=== PATIENT | male | born 1955 | race Hispanic/Latino ===

== ENCOUNTER 2017-06-28 16:53 | Inpatient (IN) | payer SELFPAY ==
[2017-06-28 17:52] LABS: BASO % 0.4 % (0.0-2.0); EOS % 0.1 % (0.0-4.0); HEMOGLOBIN 13.1 g/dL (12.0-18.0); LYMPH # 1.6 K/uL (1.0-4.3); LYMPH % 16.7 % (20.0-40.0); MEAN CELL VOLUME 89.4 fL (80.0-94.0); MEAN CORPUSCULAR HEMOGLOBIN 29.6 pg (27.0-31.0); MEAN CORPUSCULAR HGB CONC 33.1 g/dL (33.0-37.0); MEAN PLATELET VOLUME 10.8 fL (7.2-11.7); MONO # 0.7 K/uL (0.0-0.8); MONO % 7.4 % (0.0-10.0); NEUT # 7.3 K/uL (1.8-7.0); NEUT % 75.4 % (50.0-75.0); NRBC % 0.2 % (0.0-2.0); RBC 4.42 Mil/uL (4.40-5.90); RED CELL DISTRIBUTION WIDTH 14.5 % (11.5-14.5); WHITE BLOOD COUNT 9.7 K/uL (4.8-10.8)
[2017-06-28 18:20] LABS: ALB/GLOB RATIO 1.1 (1.0-2.1); ALBUMIN 3.6 g/dL (3.5-5.0); ALT/SGPT 129 U/L (21-72); AST/SGOT 82 U/L (17-59); BLOOD UREA NITROGEN 31 mg/dL (9-20); CALCIUM 9.4 mg/dl (8.6-10.4); GFR AFRICAN-AMERICAN > 60; GFR NON-AFRICAN AMERICAN 56
[2017-06-28 18:24] LABS: B-TYPE NATRIURETIC PEPTIDE 21700 pg/mL (0-900)
[2017-06-28] MEDS ORDERED: Iodixanol 320 MG/ML 100 ML BOTTLE IV ONE (19:21)
[2017-06-28] MEDS ORDERED: Azithromycin 500 MG in Sodium Chloride 0.9% 250 ML IVPB STA (21:16)
[2017-06-28] MEDS ORDERED: Heparin25000 units/250ml 1/2NS 25,000 UNITS/250 ML BAG IV ONE ×3 (21:17→22:30)
[2017-06-28 21:33] LABS: INR 1.3; PROTHROMBIN TIME 14.4 SECONDS (9.7-12.2)
--- NOTE | 2017-06-28 21:54 | C.PDOC ---
History Of Present Illness 61yo male, with history of hypertension, presents to ED with complaints of shortness of breath which has been increasing over the past 2 weeks. Patient states the shortness of breath is worse with exertion; states 1 month ago, he was able to walk a mile but now is short of breath after walking a block. He denies any chest pain, fever or cough. Patient recently had an outpatient evaluation by his PMD as well. He has no other medical complaints. Time Seen by Provider: 06/28/17 17:22 Chief Complaint (Nursing): Shortness Of Breath History Per: Patient History/Exam Limitations: no limitations Onset/Duration Of Symptoms: Days Current Symptoms Are (Timing): Still Present Exacerbating Factor(s): Exertion Associated Symptoms: denies: Fever, Chills, Chest Pain, Productive Cough Past Medical History Reviewed: Historical Data, Nursing Documentation, Vital Signs Vital Signs: Last Vital Signs Temp 98.5 F 06/28/17 21:30 Pulse 101 H 06/28/17 23:40 Resp 15 06/28/17 23:40 BP 97/70 L 06/28/17 23:40 Pulse Ox 96 06/28/17 23:40 - Medical History PMH: HTN Surgical History: No Surg Hx Family History: States: No Known Family Hx - Social History Hx Tobacco Use: No Hx Alcohol Use: Yes Hx Substance Use: No - Immunization History Hx Tetanus Toxoid Vaccination: No Hx Influenza Vaccination: No Hx Pneumococcal Vaccination: No Review Of Systems Except As Marked, All Systems Reviewed And Found Negative. Constitutional: Negative for: Fever, Chills Cardiovascular: Negative for: Chest Pain Respiratory: Positive for: Shortness of Breath. Negative for: Cough Physical Exam - Physical Exam Appears: Non-toxic, Other (thin/frail appearing) Skin: Normal Color, Warm, Dry Head: Atraumatic, Normacephalic Eye(s): bilateral: Normal Inspection, PERRL, EOMI Oral Mucosa: Moist Neck: Normal ROM, Supple Chest: Symmetrical Cardiovascular: Rhythm Regular Respiratory: Normal Breath Sounds, No Wheezing Gastrointestinal/Abdominal: Normal Exam, Soft, No Tenderness Back: Normal Inspection, No Paraspinal Tenderness Extremity: Normal ROM, No Deformity Neurological/Psych: Oriented x3 ED Course And Treatment - Laboratory Results Result Diagrams: 06/28/17 17:44 06/28/17 17:44 O2 Sat by Pulse Oximetry: 97 (RA) Pulse Ox Interpretation: Normal Critical Care Time - Critical Care Note Total Time (in mins): 120 Documented critical care: time excludes all time spent performing seperately billable procedures. Medical Decision Making Medical Decision Making: Impression: Shortness of breath, r/o PE Plan: -- Labs -- EKG -- CXR -- CT Angio Chest Time: 2046 CT Angio Chest FINDINGS: Pulmonary arteries: Multiple pulmonary clots are present in the proximal vessels on both sides including the main right and left pulmonary artery. Clot burden is large with no signs of ventricular strain. The left ventricle is larger than the right. Both ventricles do appear enlarged likely from preexisting CHF. Aorta: No acute findings. No thoracic aortic aneurysm. Lungs: There is multifocal consolidation in the left lower lobe, consistent with pneumonia. There is minimal right base atelectasis. There is linear atelectasis or scar in the right lung base. Indeterminate nodule at the right lateral lung base, 9 mm. Pleural space: Small pleural effusion is present in the left base. No pneumothorax. Heart: Mild reflux of contrast from the right heart chambers into the intrahepatic IVC and hepatic veins. This may reflect failure in the proper clinical setting. No significant pericardial effusion. Bones/joints: No acute fracture. No dislocation. Soft tissues: Unremarkable. Lymph nodes: Unremarkable. No enlarged lymph nodes. IMPRESSION: Findings consistent with pulmonary embolus with a high clot burden. Mild ventricular strain likely present although both cardiac chambers are enlarged due to pre-existing CHF. Multifocal pneumonia with small effusion of the left lung base. 9 mm nodule of the right lateral base. Nodules >8 mm current recommendations include: In a low-risk patient follow-up CT at around 3, 9, and 24 months, dynamic contrast-enhanced CT, PET, and/or biopsy. In a high-risk patient same as for low-risk patient. THIS REPORT CONTAINS FINDINGS THAT MAY BE CRITICAL TO PATIENT CARE. The findings were verbally communicated via telephone conference with Rashad Alegria at 8 :47 PM EDT on 06/28/2017. The findings were acknowledged and understood. Time: [address] Lee, patient's PMD and patient to be admitted to ICU under his service on a heparin drip and IV antibiotics. Case discussed with inspector canned food reconditioning as well who will evaluated patient at bedside. Disposition - Disposition Disposition: HOSPITALIZED Disposition Time: 21:00 Condition: SERIOUS - Clinical Impression Clinical Impression: Pulmonary embolism, CHF (congestive heart failure) - Scribe Statement The provider has reviewed the documentation as recorded by the Scribe (Darlene Molina) Provider Attestation: All medical record entries made by the Scribe were at my direction and personally dictated by me. I have reviewed the chart and agree that the record accurately reflects my personal performance of the history, physical exam, medical decision making, and the department course for this patient. I have also personally directed, reviewed, and agree with the discharge instructions and disposition.
--- NOTE | 2017-06-28 22:17 | CP.PCM.CON ---
History of Present Illness - History of Present Illness History of Present Illness: 61yo male, with no significant PMH presents to ED with complaints of shortness of breath which has been increasing since early May. Patient states the shortness of breath is worse with exertion; states 1 month ago, he was able to walk a mile but now is short of breath after walking a block. c/o intermittent bilateral chest tightness lateral chests and dry cough.No fever or cough.Apetite poor with recent weight loss.He also complains of mild bilateral calf discomfort since yesterday and lower leg swelling x few days . Patient recently had an outpatient evaluation by his PMD as well and started on metoprolol .He also had a CT scan done. He was scheduled for a stress test tomorrow Review of Systems - Review of Systems Systems not reviewed;Unavailable: Respiratory Distress - Constitutional Constitutional: Anorexia, Fatigue, Weight Loss. absent: Chills, Fever, Frequent Falls - EENT Eyes: absent: Blurred Vision, Pain Ears: absent: Ear Pain, Dizziness Nose/Mouth/Throat: absent: Nasal Congestion, Sore Throat, Neck Mass - Cardiovascular Cardiovascular: Chest Pain, Dyspnea, Dyspnea on Exertion, Leg Edema, Rapid Heart Rate. absent: Claudication, Leg Ulcers - Respiratory Respiratory: Cough, Dyspnea on Exertion. absent: Chest Congestion, Pain with Coughing - Gastrointestinal Gastrointestinal: absent: Abdominal Pain, Change in Stool Character, Nausea, Vomiting - Genitourinary Genitourinary: absent: Difficulty Urinating, Dysuria - Musculoskeletal Musculoskeletal: absent: Abnormal Gait, Back Pain, Stiffness - Integumentary Integumentary: absent: Bleeding Lesions, Dry Skin - Neurological Neurological: absent: Dizziness, Frequent Falls - Endocrine Endocrine: absent: Cold Intolorance, Heat Intolorance, Polydipsia, Polyphagia - Hematologic/Lymphatic Hematologic: absent: Easy Bleeding Past Patient History - Past Social History Smoking Status: Former Smoker 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 Alcohol: Social Drugs: Denies Home Situation {Lives}: Alone - CARDIAC Hx Hypertension: Yes - PSYCHIATRIC Hx Substance Use: No - SURGICAL HISTORY Hx Surgeries: No - ANESTHESIA Hx Anesthesia: No Meds Allergies/Adverse Reactions: Allergies Allergy/AdvReac Type Severity Reaction Status Date / Time No Known Allergies Allergy Verified 06/28/17 17:20 - Medications Medications: Current Medications Azithromycin 500 mg/ Sodium (Chloride) 250 mls @ 250 mls/hr IVPB STAT STA PRN Reason: Protocol Stop: 06/28/17 22:15 Last Admin: 06/28/17 22:05 Dose: 250 mls/hr Ceftriaxone Sodium 1 gm/ (Sodium Chloride) 100 mls @ 100 mls/hr IVPB DAILY BECK PRN Reason: Protocol Physical Exam - Constitutional Additional comments: dyspneic on exertion - Head Exam Head Exam: ATRAUMATIC, NORMAL INSPECTION, NORMOCEPHALIC - Eye Exam Eye Exam: EOMI, Normal appearance, PERRL. absent: Periorbital swelling - ENT Exam ENT Exam: Mucous Membranes Dry, Normal Exam - Neck Exam Neck exam: Positive for: Full Rom, Normal Inspection - Respiratory Exam Respiratory Exam: Clear to Auscultation Bilateral, NORMAL BREATHING PATTERN. absent: Chest Wall Tenderness, Rales - Cardiovascular Exam Cardiovascular Exam: Tachycardia. absent: JVD - GI/Abdominal Exam GI & Abdominal Exam: Normal Bowel Sounds, Soft. absent: Organomegaly, Tenderness - Extremities Exam Extremities exam: Positive for: pedal edema, pedal pulses present. Negative for : calf tenderness, tenderness - Back Exam Back exam: NORMAL INSPECTION. absent: rash noted - Neurological Exam Neurological exam: Alert, Oriented x3 - Psychiatric Exam Psychiatric exam: Normal Affect - Skin Skin Exam: Dry, Normal Color Results - Vital Signs Recent Vital Signs: Last Vital Signs Temp 98.5 F 06/28/17 21:30 Pulse 104 H 06/28/17 21:30 Resp 18 06/28/17 21:46 BP 100/72 06/28/17 21:30 Pulse Ox 97 06/28/17 21:59 - Labs Result Diagrams: 06/28/17 17:44 06/28/17 17:44 Labs: Laboratory Results - last 24 hr 06/28/17 06/28/17 06/28/17 17:44 17:44 21:19 WBC 9.7 D RBC 4.42 Hgb 13.1 Hct 39.5 MCV 89.4 D MCH 29.6 MCHC 33.1 RDW 14.5 Plt Count 178 MPV 10.8 Neut % (Auto) 75.4 H Lymph % (Auto) 16.7 L [place] % (Auto) 7.4 Eos % (Auto) 0.1 Baso % (Auto) 0.4 Neut # (Auto) 7.3 H Lymph # (Auto) 1.6 [place] # (Auto) 0.7 Eos # (Auto) 0.0 Baso # (Auto) 0.0 PT 14.4 H INR 1.3 APTT 27 Sodium 141 Potassium 4.7 Chloride 104 Carbon Dioxide 19 L Anion Gap 23 H BUN 31 H Creatinine 1.3 Est GFR ( Amer) > 60 Est GFR (Non-Af Amer) 56 Random Glucose 130 H Calcium 9.4 Total Bilirubin 1.4 H AST 82 H ALT 129 H D Alkaline Phosphatase 232 H D Troponin I 0.0550 NT-Pro-B Natriuret Pep 70114 H Total Protein 6.9 Albumin 3.6 Globulin 3.3 Albumin/Globulin Ratio 1.1 - EKG Data EKG Interpreted by: Myself Rate: Tachycardia - Imaging and Cardiology Chest x-ray Status: Image reviewed by me CT scan - chest Status: Image reviewed by me, Report reviewed by me Assessment & Plan - Assessment and Plan (Free Text) Assessment: 1.Bilateral Pulmonary Emboli Multiple Pulmonary clots including main Right and left pulmonary arteries..No signs of ventricular strain on Ct scan Started on IV heparin in ER ECHO Had CT chest/abdomen/pelvis without contrast 06/23 as outpatient 2.Left Lower lobe Pneumonia on antibiotics 3.Right lung nodule- 4.Elevated LFT-f/u with rpt labs 5.Elevated BNP-f/u with ECHO
[2017-06-29 04:32] LABS: BASO # 0.1 K/uL (0.0-0.2); BASO % 1.1 % (0.0-2.0); HEMOGLOBIN 11.8 g/dL (12.0-18.0); LYMPH # 1.4 K/uL (1.0-4.3); LYMPH % 18.7 % (20.0-40.0); MEAN CELL VOLUME 88.2 fL (80.0-94.0); MEAN CORPUSCULAR HEMOGLOBIN 29.6 pg (27.0-31.0); MEAN CORPUSCULAR HGB CONC 33.5 g/dL (33.0-37.0); MEAN PLATELET VOLUME 10.5 fL (7.2-11.7); MONO # 0.5 K/uL (0.0-0.8); NEUT # 5.4 K/uL (1.8-7.0); NEUT % 73.2 % (50.0-75.0); NRBC % 0.2 % (0.0-2.0); RBC 4.01 Mil/uL (4.40-5.90); RED CELL DISTRIBUTION WIDTH 14.8 % (11.5-14.5); WHITE BLOOD COUNT 7.4 K/uL (4.8-10.8)
[2017-06-29 04:56] LABS: B-TYPE NATRIURETIC PEPTIDE 17600 pg/mL (0-900)
[2017-06-29 04:58] LABS: ALT/SGPT 161 U/L (21-72); AST/SGOT 131 U/L (17-59); BLOOD UREA NITROGEN 31 mg/dL (9-20); CALCIUM 8.9 mg/dl (8.6-10.4); GFR AFRICAN-AMERICAN > 60; GFR NON-AFRICAN AMERICAN 56
[2017-06-29 06:40] LABS: ARTERIAL BLOOD GAS HCO3 23.1 mmol/L (21-28); ARTERIAL BLOOD GAS HEMOGLOBIN 11.7 g/dL (11.7-17.4); ARTERIAL BLOOD GAS PCO2 27 mm/Hg (35-45); ARTERIAL BLOOD GAS PH 7.48 (7.35-7.45); ARTERIAL BLOOD GAS PO2 76 mm/Hg (80-100); ARTERIAL BLOOD GAS TCO2 20.9 mmol/L (22-28)
--- NOTE | 2017-06-29 08:54 | CT ---
CT chest pulmonary angiogram History: Chest pain. Comparison: None available. Technique: Axial computed tomographic angiographic images of the chest were performed with intravenous contrast utilizing pulmonary embolism protocol. Intravenous contrast is utilized. Subsequently, sagittal coronal reformatted images were obtained. MIPS reconstructed images were created and reviewed. This CT exam was performed using one or more of the following dose reduction techniques: Automated exposure control, adjustment of the mA and/or kV according to patient size, and/or use of iterative reconstruction technique. Findings: Multiple prominent filling defects suggestive for prominent pulmonary emboli are present in the proximal vessels on both sides including the main right and left pulmonary arteries. Clot burden is large. Left ventricle is larger than right. Both ventricles do appear enlarged likely from pre-existing congestive heart failure. Clinical correlation. Atherosclerotic calcification within the aorta. Multifocal consolidation most prominent in the left lower lobe consistent with pneumonia and or additional etiology. Clinical correlation. Focal nodular consolidation in the right middle lobe anteriorly measuring 8 millimeters. Focal atelectatic changes at the posterior lateral aspect of the left upper lobe inferiorly. Mild right basilar atelectasis. Linear atelectasis and/or scarring in the right lung. Indeterminate pulmonary nodule in the right lateral lung base measuring 9-10 millimeters. Small left pleural effusion. Mild reflux of contrast from the right heart chamber into the intrahepatic IVC and hepatic veins. This may reflect failure in the proper clinical setting. Clinical correlation. Degenerative changes in the spine. Impression: Findings consistent with bilateral pulmonary embolism with a high clot burden. Mild ventricular strain likely present although both cardiac chambers are enlarged likely due to pre-existing CHF. Clinical correlation. Multifocal pneumonia with small effusion of the left lung base. 9-10 mm pulmonary nodule at the right lung base. Interval [address] follow-up would be helpful to ensure stability of this nodule. These findings were preliminarily reported at 8:48 p.m. on 06/28/[address] Marcos Welch from [facility].
--- NOTE | 2017-06-29 09:49 | CP.CCUPN ---
<Facundo Brizuela - Last Filed: 06/29/17 12:23> CCU Subjective - Physician Review Subjective (Free Text): 06/29/17 09:48 Patient seen and examined. He states that he has been unable to walk a block before getting short of breath for the last couple of weeks. He has also had leg pain which prompted him to seek medical attention. Patient denies history of travel or trauma. No family history of clots; however, he did state however that his father had lupus. CCU Objective - Vital Signs / Intake & Output Vital Signs (Last 4 hours): Vital Signs Temp Pulse Resp BP Pulse Ox 06/29/17 08:42 100 H 17 87/47 L 98 06/29/17 08:00 98.3 F 06/29/17 07:40 98 H 27 H 116/47 L 99 06/29/17 06:40 97 H 17 110/78 97 06/29/17 06:00 99 H 12 95 Intake and Output (Last 8hrs): Intake & Output 06/28/17 06/29/17 06/29/17 22:59 06:59 14:59 Intake Total 1258.0 240.5 Output Total 0 0 Balance 1258.0 240.5 Weight 165 lb 167 lb Intake: Intake, IV Amount 358.0 40.5 Right Antecubital 250 Right Wrist 108.0 40.5 Oral 900 200 Output: Urine 0 0 Urine, Voided 0 0 Stool 0 0 Other: Voiding Method Urinal - Physical Exam Head: Positive for: Atraumatic, Normocephalic Pupils: Positive for: PERRL Extroacular Muscles: Positive for: EOMI Mouth: Positive for: Moist Mucous Membranes Respiratory/Chest: Positive for: Clear to Auscultation. Negative for: Wheezes, Rales, Rhonchi Cardiovascular: Positive for: Normal S1, S2, Tachycardic Abdomen: Positive for: Normal Bowel Sounds. Negative for: Tenderness, Distention Upper Extremity: Negative for: Edema Lower Extremity: Positive for: CALF TENDERNESS. Negative for: Edema Neurological: Positive for: GCS=15 Skin: Positive for: Warm, Dry Psychiatric: Positive for: Alert, Oriented x 3 - Medications Active Medications: Active Medications Generic Name Dose Route Start Last Admin Trade Name Freq PRN Reason Stop Dose Admin Ceftriaxone Sodium 1 gm/ 100 mls @ 100 mls/hr 06/29/17 10:00 Sodium Chloride IVPB DAILY BECK Protocol Heparin Sodium/Sodium Chloride 25,000 units in 250 mls @ 13.472 mls/hr 22:30 06/28/17 23:21 Heparin 41747 Units/250ml 1/2 Normal Saline IV 06/29/17 17:03 Not Given .[id number] ONE Protocol 18 UNITS/KG/HR Dextrose 1,000 mls @ 50 mls/hr 06/28/17 22:45 06/28/17 22:45 Dextrose 5% In Water 1000 Ml IV Not Given .Q20H BECK Pantoprazole Sodium 40 mg 06/29/17 10:00 Protonix Ec Tab PO DAILY BECK - Patient Studies Lab Studies: Lab Studies 06/29/17 06/29/17 06/29/17 Range/Units 06:36 04:25 04:25 WBC 7.4 (4.8-10.8) K/uL RBC 4.01 L (4.40-5.90) Mil/uL Hgb 11.8 L (12.0-18.0) g/dL Hct 35.3 (35.0-51.0) % MCV 88.2 (80.0-94.0) fL MCH 29.6 (27.0-31.0) pg MCHC 33.5 (33.0-37.0) g/dL RDW 14.8 H (11.5-14.5) % Plt Count 139 (130-400) K/uL MPV 10.5 (7.2-11.7) fL Neut % (Auto) 73.2 (50.0-75.0) % Lymph % (Auto) 18.7 L (20.0-40.0) % [place] % (Auto) 7.0 (0.0-10.0) % Eos % (Auto) 0.0 (0.0-4.0) % Baso % (Auto) 1.1 (0.0-2.0) % Neut # (Auto) 5.4 (1.8-7.0) K/uL Lymph # (Auto) 1.4 (1.0-4.3) K/uL [place] # (Auto) 0.5 (0.0-0.8) K/uL Eos # (Auto) 0.0 (0.0-0.7) K/uL Baso # (Auto) 0.1 (0.0-0.2) K/uL PT (9.7-12.2) SECONDS INR APTT 72 H D (21-34) SECONDS Puncture Site Rb pCO2 27 L (35-45) mm/Hg pO2 76 L (80-100) mm/Hg HCO3 23.1 (21-28) mmol/L ABG pH 7.48 H (7.35-7.45) ABG Total CO2 20.9 L (22-28) mmol/L ABG O2 Saturation 97.0 (95-98) % ABG Base Excess -2.3 L (-2.0-3.0) mmol/L ABG Hemoglobin 11.7 (11.7-17.4) g/dL ABG Carboxyhemoglobin 1.7 H (0.5-1.5) % POC ABG HHb (Measured) 2.9 (0.0-5.0) % ABG Methemoglobin 0.9 (0.0-3.0) % Davi Test Na Hgb O2 Saturation 94.5 L (95.0-98.0) % Liter Flow 3.0 Sodium (132-148) mmol/L Potassium (3.6-5.2) mmol/L Chloride (98-107) mmol/L Carbon Dioxide (22-30) mmol/L Anion Gap (10-20) BUN (9-20) mg/dL Creatinine (0.8-1.5) mg/dL Est GFR ( Amer) Est GFR (Non-Af Amer) Random Glucose (75-110) mg/dL Calcium (8.6-10.4) mg/dl Phosphorus (2.5-4.5) mg/dL Magnesium (1.6-2.3) mg/dL Total Bilirubin (0.2-1.3) mg/dL AST (17-59) U/L ALT (21-72) U/L Alkaline Phosphatase (38-126) U/L Troponin I (0.00-0.120) ng/mL NT-Pro-B Natriuret Pep (0-900) pg/mL Total Protein (6.3-8.3) g/dL Albumin (3.5-5.0) g/dL Globulin (2.2-3.9) gm/dL Albumin/Globulin Ratio (1.0-2.1) 06/29/17 06/28/17 06/28/17 Range/Units 04:25 21:19 17:44 WBC (4.8-10.8) K/uL RBC (4.40-5.90) Mil/uL Hgb (12.0-18.0) g/dL Hct (35.0-51.0) % MCV (80.0-94.0) fL MCH (27.0-31.0) pg MCHC (33.0-37.0) g/dL RDW (11.5-14.5) % Plt Count (130-400) K/uL MPV (7.2-11.7) fL Neut % (Auto) (50.0-75.0) % Lymph % (Auto) (20.0-40.0) % [place] % (Auto) (0.0-10.0) % Eos % (Auto) (0.0-4.0) % Baso % (Auto) (0.0-2.0) % Neut # (Auto) (1.8-7.0) K/uL Lymph # (Auto) (1.0-4.3) K/uL [place] # (Auto) (0.0-0.8) K/uL Eos # (Auto) (0.0-0.7) K/uL Baso # (Auto) (0.0-0.2) K/uL PT 14.4 H (9.7-12.2) SECONDS INR 1.3 APTT 27 (21-34) SECONDS Puncture Site pCO2 (35-45) mm/Hg pO2 (80-100) mm/Hg HCO3 (21-28) mmol/L ABG pH (7.35-7.45) ABG Total CO2 (22-28) mmol/L ABG O2 Saturation (95-98) % ABG Base Excess (-2.0-3.0) mmol/L ABG Hemoglobin (11.7-17.4) g/dL ABG Carboxyhemoglobin (0.5-1.5) % POC ABG HHb (Measured) (0.0-5.0) % ABG Methemoglobin (0.0-3.0) % Davi Test Hgb O2 Saturation (95.0-98.0) % Liter Flow Sodium 140 141 (132-148) mmol/L Potassium 4.9 4.7 (3.6-5.2) mmol/L Chloride 106 104 (98-107) mmol/L Carbon Dioxide 22 19 L (22-30) mmol/L Anion Gap 17 23 H (10-20) BUN 31 H 31 H (9-20) mg/dL Creatinine 1.3 1.3 (0.8-1.5) mg/dL Est GFR ( Amer) > 60 > 60 Est GFR (Non-Af Amer) 56 56 Random Glucose 107 130 H (75-110) mg/dL Calcium 8.9 9.4 (8.6-10.4) mg/dl Phosphorus 4.8 H (2.5-4.5) mg/dL Magnesium 2.5 H (1.6-2.3) mg/dL Total Bilirubin 1.3 1.4 H (0.2-1.3) mg/dL AST 131 H D 82 H (17-59) U/L ALT 161 H D 129 H D (21-72) U/L Alkaline Phosphatase 218 H 232 H D (38-126) U/L Troponin I 0.0550 (0.00-0.120) ng/mL NT-Pro-B Natriuret Pep 88922 H 01048 H (0-900) pg/mL Total Protein 5.9 L 6.9 (6.3-8.3) g/dL Albumin 3.0 L 3.6 (3.5-5.0) g/dL Globulin 2.9 3.3 (2.2-3.9) gm/dL Albumin/Globulin Ratio 1.0 1.1 (1.0-2.1) 06/28/17 Range/Units 17:44 WBC 9.7 D (4.8-10.8) K/uL RBC 4.42 (4.40-5.90) Mil/uL Hgb 13.1 (12.0-18.0) g/dL Hct 39.5 (35.0-51.0) % MCV 89.4 D (80.0-94.0) fL MCH 29.6 (27.0-31.0) pg MCHC 33.1 (33.0-37.0) g/dL RDW 14.5 (11.5-14.5) % Plt Count 178 (130-400) K/uL MPV 10.8 (7.2-11.7) fL Neut % (Auto) 75.4 H (50.0-75.0) % Lymph % (Auto) 16.7 L (20.0-40.0) % [place] % (Auto) 7.4 (0.0-10.0) % Eos % (Auto) 0.1 (0.0-4.0) % Baso % (Auto) 0.4 (0.0-2.0) % Neut # (Auto) 7.3 H (1.8-7.0) K/uL Lymph # (Auto) 1.6 (1.0-4.3) K/uL [place] # (Auto) 0.7 (0.0-0.8) K/uL Eos # (Auto) 0.0 (0.0-0.7) K/uL Baso # (Auto) 0.0 (0.0-0.2) K/uL PT (9.7-12.2) SECONDS INR APTT (21-34) SECONDS Puncture Site pCO2 (35-45) mm/Hg pO2 (80-100) mm/Hg HCO3 (21-28) mmol/L ABG pH (7.35-7.45) ABG Total CO2 (22-28) mmol/L ABG O2 Saturation (95-98) % ABG Base Excess (-2.0-3.0) mmol/L ABG Hemoglobin (11.7-17.4) g/dL ABG Carboxyhemoglobin (0.5-1.5) % POC ABG HHb (Measured) (0.0-5.0) % ABG Methemoglobin (0.0-3.0) % Davi Test Hgb O2 Saturation (95.0-98.0) % Liter Flow Sodium (132-148) mmol/L Potassium (3.6-5.2) mmol/L Chloride (98-107) mmol/L Carbon Dioxide (22-30) mmol/L Anion Gap (10-20) BUN (9-20) mg/dL Creatinine (0.8-1.5) mg/dL Est GFR ( Amer) Est GFR (Non-Af Amer) Random Glucose (75-110) mg/dL Calcium (8.6-10.4) mg/dl Phosphorus (2.5-4.5) mg/dL Magnesium (1.6-2.3) mg/dL Total Bilirubin (0.2-1.3) mg/dL AST (17-59) U/L ALT (21-72) U/L Alkaline Phosphatase (38-126) U/L Troponin I (0.00-0.120) ng/mL NT-Pro-B Natriuret Pep (0-900) pg/mL Total Protein (6.3-8.3) g/dL Albumin (3.5-5.0) g/dL Globulin (2.2-3.9) gm/dL Albumin/Globulin Ratio (1.0-2.1) Laboratory Results - last 24 hr 06/28/17 06/28/17 06/28/17 17:44 17:44 21:19 WBC 9.7 D RBC 4.42 Hgb 13.1 Hct 39.5 MCV 89.4 D MCH 29.6 MCHC 33.1 RDW 14.5 Plt Count 178 MPV 10.8 Neut % (Auto) 75.4 H Lymph % (Auto) 16.7 L [place] % (Auto) 7.4 Eos % (Auto) 0.1 Baso % (Auto) 0.4 Neut # (Auto) 7.3 H Lymph # (Auto) 1.6 [place] # (Auto) 0.7 Eos # (Auto) 0.0 Baso # (Auto) 0.0 PT 14.4 H INR 1.3 APTT 27 Puncture Site pCO2 pO2 HCO3 ABG pH ABG Total CO2 ABG O2 Saturation ABG Base Excess ABG Hemoglobin ABG Carboxyhemoglobin POC ABG HHb (Measured) ABG Methemoglobin Davi Test Hgb O2 Saturation Liter Flow Sodium 141 Potassium 4.7 Chloride 104 Carbon Dioxide 19 L Anion Gap 23 H BUN 31 H Creatinine 1.3 Est GFR ( Amer) > 60 Est GFR (Non-Af Amer) 56 Random Glucose 130 H Calcium 9.4 Phosphorus Magnesium Total Bilirubin 1.4 H AST 82 H ALT 129 H D Alkaline Phosphatase 232 H D Troponin I 0.0550 NT-Pro-B Natriuret Pep 90322 H Total Protein 6.9 Albumin 3.6 Globulin 3.3 Albumin/Globulin Ratio 1.1 06/29/17 06/29/17 06/29/17 04:25 04:25 04:25 WBC 7.4 RBC 4.01 L Hgb 11.8 L Hct 35.3 MCV 88.2 MCH 29.6 MCHC 33.5 RDW 14.8 H Plt Count 139 MPV 10.5 Neut % (Auto) 73.2 Lymph % (Auto) 18.7 L [place] % (Auto) 7.0 Eos % (Auto) 0.0 Baso % (Auto) 1.1 Neut # (Auto) 5.4 Lymph # (Auto) 1.4 [place] # (Auto) 0.5 Eos # (Auto) 0.0 Baso # (Auto) 0.1 PT INR APTT 72 H D Puncture Site pCO2 pO2 HCO3 ABG pH ABG Total CO2 ABG O2 Saturation ABG Base Excess ABG Hemoglobin ABG Carboxyhemoglobin POC ABG HHb (Measured) ABG Methemoglobin Davi Test Hgb O2 Saturation Liter Flow Sodium 140 Potassium 4.9 Chloride 106 Carbon Dioxide 22 Anion Gap 17 BUN 31 H Creatinine 1.3 Est GFR ( Amer) > 60 Est GFR (Non-Af Amer) 56 Random Glucose 107 Calcium 8.9 Phosphorus 4.8 H Magnesium 2.5 H Total Bilirubin 1.3 AST 131 H D ALT 161 H D Alkaline Phosphatase 218 H Troponin I NT-Pro-B Natriuret Pep 55706 H Total Protein 5.9 L Albumin 3.0 L Globulin 2.9 Albumin/Globulin Ratio 1.0 06/29/17 06:36 WBC RBC Hgb Hct MCV MCH MCHC RDW Plt Count MPV Neut % (Auto) Lymph % (Auto) [place] % (Auto) Eos % (Auto) Baso % (Auto) Neut # (Auto) Lymph # (Auto) [place] # (Auto) Eos # (Auto) Baso # (Auto) PT INR APTT Puncture Site Rb pCO2 27 L pO2 76 L HCO3 23.1 ABG pH 7.48 H ABG Total CO2 20.9 L ABG O2 Saturation 97.0 ABG Base Excess -2.3 L ABG Hemoglobin 11.7 ABG Carboxyhemoglobin 1.7 H POC ABG HHb (Measured) 2.9 ABG Methemoglobin 0.9 Davi Test Na Hgb O2 Saturation 94.5 L Liter Flow 3.0 Sodium Potassium Chloride Carbon Dioxide Anion Gap BUN Creatinine Est GFR ( Amer) Est GFR (Non-Af Amer) Random Glucose Calcium Phosphorus Magnesium Total Bilirubin AST ALT Alkaline Phosphatase Troponin I NT-Pro-B Natriuret Pep Total Protein Albumin Globulin Albumin/Globulin Ratio EKG/Cardiology Studies: Cardiology / EKG Studies 06/28/17 17:22 EKG [ELECTROCARDIOGRAM] Stat Comment: Mode Of Transportation: BED Reason For Exam: cp 06/29/17 09:00 ELECTROCARDIOGRAM Routine Comment: Mode Of Transportation: PORTABLE Reason For Exam: Pulmonary embolism Critical Care Progress Note - Nutrition Nutrition: Nutrition Category Date Time Status Heart Healthy Diet [DIET] Diets 06/29/17 Breakfast Active Assessment/Plan - Assessment and Plan (Free Text) Assessment: This is a 61 year old male with no significant PMHx who presented with dyspnea and leg pain. He was diagnosed with bilateral PE and started on heparin drip. Bedside echo done in anticipation of thrombolytic therapy. Low EF with 2:1 left ventricle to right ventricle ratio but concern for reversal. Patient set for CT guided thrombolytic therapy later. Neuro Awake, alert Cardio Echocardiogram to check for right heart strain Cardiology on consult Pulm Saturating well on nasal cannula On Heparin drip for PE, will have thrombolytic therapy later GI Heart Healthy Diet Infectious Disease Assessment: Pneumonia seen on CT scan Rocephin 1 gm IV daily Azithromycin 500 mg IV daily Prophylaxis Heparin drip for now Protonix 40 mg PO daily Discussed with Dr. Burr <Lauro Burr - Last Filed: 06/29/17 17:22> CCU Objective - Vital Signs / Intake & Output Vital Signs (Last 4 hours): Vital Signs Pulse Resp BP Pulse Ox 06/29/17 16:55 102 H 19 94/67 L 97 06/29/17 16:54 102 H 18 94/67 L 96 06/29/17 16:40 103 H 25 H 106/78 96 06/29/17 16:30 104 H 22 106/78 96 06/29/17 15:56 106 H 20 95/65 L 98 Intake and Output (Last 8hrs): Intake & Output 06/29/17 06/29/17 06/29/17 06:59 14:59 22:59 Intake Total 1258.0 367.5 260 Output Total 0 0 0 Balance 1258.0 367.5 260 Weight 167 lb Intake: Intake, IV Amount 358.0 167.5 260 Right Antecubital 250 100 Right EKOS Sheath #1 - 70 Port 1 Right EKOS Sheath #1 - 10 Port 2 Right EKOS Sheath #1 - 50 Port 3 Right EKOS Sheath #2 - 70 Port 1 Right EKOS Sheath #2 - 10 Port 2 Right EKOS Sheath #2 - 50 Port 3 Right Wrist 108.0 67.5 Oral 900 200 Output: Urine 0 0 0 Urine, Voided 0 0 0 Stool 0 0 0 - Medications Active Medications: Active Medications Generic Name Dose Route Start Last Admin Trade Name Freq PRN Reason Stop Dose Admin Ceftriaxone Sodium 1 gm/ 100 mls @ 100 mls/hr 06/29/17 10:00 06/29/17 10:15 Sodium Chloride IVPB 100 mls/hr DAILY BECK Administration Protocol Dextrose 1,000 mls @ 50 mls/hr 06/28/17 22:45 06/28/17 22:45 Dextrose 5% In Water 1000 Ml IV Not Given .Q20H BECK Alteplase, Recombinant 10 mg/ 500 mls @ 25 mls/hr 06/29/17 14:00 06/29/17 14: 00 Sodium Chloride IV 06/30/17 09:59 25 mls/hr ONCE ONE Administration Alteplase, Recombinant 10 mg/ 500 mls @ 25 mls/hr 06/29/17 14:00 06/29/17 14: 00 Sodium Chloride IV 06/30/17 09:59 25 mls/hr ONCE ONE Administration Sodium Chloride 1,000 mls @ 35 mls/hr 06/29/17 15:15 06/29/17 14:00 Sodium Chloride 0.9% IV 35 mls/hr .Q24H BECK Administration Heparin Sodium (Porcine) 500 mls @ 5 mls/hr 06/29/17 15:05 Heparin 1000 Units/500 Ml Ns IV 07/03/17 19:04 ONCE ONE Pantoprazole Sodium 40 mg 06/29/17 10:00 06/29/17 10:14 Protonix Ec Tab PO 40 mg DAILY BECK Administration - Patient Studies Lab Studies: Lab Studies 06/29/17 06/29/17 06/29/17 Range/Units 10:53 06:36 04:25 WBC 7.4 (4.8-10.8) K/uL RBC 4.01 L (4.40-5.90) Mil/uL Hgb 11.8 L (12.0-18.0) g/dL Hct 35.3 (35.0-51.0) % MCV 88.2 (80.0-94.0) fL MCH 29.6 (27.0-31.0) pg MCHC 33.5 (33.0-37.0) g/dL RDW 14.8 H (11.5-14.5) % Plt Count 139 (130-400) K/uL MPV 10.5 (7.2-11.7) fL Neut % (Auto) 73.2 (50.0-75.0) % Lymph % (Auto) 18.7 L (20.0-40.0) % [place] % (Auto) 7.0 (0.0-10.0) % Eos % (Auto) 0.0 (0.0-4.0) % Baso % (Auto) 1.1 (0.0-2.0) % Neut # (Auto) 5.4 (1.8-7.0) K/uL Lymph # (Auto) 1.4 (1.0-4.3) K/uL [place] # (Auto) 0.5 (0.0-0.8) K/uL Eos # (Auto) 0.0 (0.0-0.7) K/uL Baso # (Auto) 0.1 (0.0-0.2) K/uL PT (9.7-12.2) SECONDS INR APTT 70 H (21-34) SECONDS Puncture Site Rb pCO2 27 L (35-45) mm/Hg pO2 76 L (80-100) mm/Hg HCO3 23.1 (21-28) mmol/L ABG pH 7.48 H (7.35-7.45) ABG Total CO2 20.9 L (22-28) mmol/L ABG O2 Saturation 97.0 (95-98) % ABG Base Excess -2.3 L (-2.0-3.0) mmol/L ABG Hemoglobin 11.7 (11.7-17.4) g/dL ABG Carboxyhemoglobin 1.7 H (0.5-1.5) % POC ABG HHb (Measured) 2.9 (0.0-5.0) % ABG Methemoglobin 0.9 (0.0-3.0) % Davi Test Na Hgb O2 Saturation 94.5 L (95.0-98.0) % Liter Flow 3.0 Sodium (132-148) mmol/L Potassium (3.6-5.2) mmol/L Chloride (98-107) mmol/L Carbon Dioxide (22-30) mmol/L Anion Gap (10-20) BUN (9-20) mg/dL Creatinine (0.8-1.5) mg/dL Est GFR ( Amer) Est GFR (Non-Af Amer) Random Glucose (75-110) mg/dL Hemoglobin A1c (4.2-6.5) % Calcium (8.6-10.4) mg/dl Phosphorus (2.5-4.5) mg/dL Magnesium (1.6-2.3) mg/dL Total Bilirubin (0.2-1.3) mg/dL AST (17-59) U/L ALT (21-72) U/L Alkaline Phosphatase (38-126) U/L Troponin I (0.00-0.120) ng/mL NT-Pro-B Natriuret Pep (0-900) pg/mL Total Protein (6.3-8.3) g/dL Albumin (3.5-5.0) g/dL Globulin (2.2-3.9) gm/dL Albumin/Globulin Ratio (1.0-2.1) 06/29/17 06/29/17 06/29/17 Range/Units 04:25 04:25 04:25 WBC (4.8-10.8) K/uL RBC (4.40-5.90) Mil/uL Hgb (12.0-18.0) g/dL Hct (35.0-51.0) % MCV (80.0-94.0) fL MCH (27.0-31.0) pg MCHC (33.0-37.0) g/dL RDW (11.5-14.5) % Plt Count (130-400) K/uL MPV (7.2-11.7) fL Neut % (Auto) (50.0-75.0) % Lymph % (Auto) (20.0-40.0) % [place] % (Auto) (0.0-10.0) % Eos % (Auto) (0.0-4.0) % Baso % (Auto) (0.0-2.0) % Neut # (Auto) (1.8-7.0) K/uL Lymph # (Auto) (1.0-4.3) K/uL [place] # (Auto) (0.0-0.8) K/uL Eos # (Auto) (0.0-0.7) K/uL Baso # (Auto) (0.0-0.2) K/uL PT (9.7-12.2) SECONDS INR APTT 72 H D (21-34) SECONDS Puncture Site pCO2 (35-45) mm/Hg pO2 (80-100) mm/Hg HCO3 (21-28) mmol/L ABG pH (7.35-7.45) ABG Total CO2 (22-28) mmol/L ABG O2 Saturation (95-98) % ABG Base Excess (-2.0-3.0) mmol/L ABG Hemoglobin (11.7-17.4) g/dL ABG Carboxyhemoglobin (0.5-1.5) % POC ABG HHb (Measured) (0.0-5.0) % ABG Methemoglobin (0.0-3.0) % Davi Test Hgb O2 Saturation (95.0-98.0) % Liter Flow Sodium 140 (132-148) mmol/L Potassium 4.9 (3.6-5.2) mmol/L Chloride 106 (98-107) mmol/L Carbon Dioxide 22 (22-30) mmol/L Anion Gap 17 (10-20) BUN 31 H (9-20) mg/dL Creatinine 1.3 (0.8-1.5) mg/dL Est GFR ( Amer) > 60 Est GFR (Non-Af Amer) 56 Random Glucose 107 (75-110) mg/dL Hemoglobin A1c 6.1 (4.2-6.5) % Calcium 8.9 (8.6-10.4) mg/dl Phosphorus 4.8 H (2.5-4.5) mg/dL Magnesium 2.5 H (1.6-2.3) mg/dL Total Bilirubin 1.3 (0.2-1.3) mg/dL AST 131 H D (17-59) U/L ALT 161 H D (21-72) U/L Alkaline Phosphatase 218 H (38-126) U/L Troponin I (0.00-0.120) ng/mL NT-Pro-B Natriuret Pep 18327 H (0-900) pg/mL Total Protein 5.9 L (6.3-8.3) g/dL Albumin 3.0 L (3.5-5.0) g/dL Globulin 2.9 (2.2-3.9) gm/dL Albumin/Globulin Ratio 1.0 (1.0-2.1) 06/28/17 06/28/17 06/28/17 Range/Units 21:19 17:44 17:44 WBC 9.7 D (4.8-10.8) K/uL RBC 4.42 (4.40-5.90) Mil/uL Hgb 13.1 (12.0-18.0) g/dL Hct 39.5 (35.0-51.0) % MCV 89.4 D (80.0-94.0) fL MCH 29.6 (27.0-31.0) pg MCHC 33.1 (33.0-37.0) g/dL RDW 14.5 (11.5-14.5) % Plt Count 178 (130-400) K/uL MPV 10.8 (7.2-11.7) fL Neut % (Auto) 75.4 H (50.0-75.0) % Lymph % (Auto) 16.7 L (20.0-40.0) % [place] % (Auto) 7.4 (0.0-10.0) % Eos % (Auto) 0.1 (0.0-4.0) % Baso % (Auto) 0.4 (0.0-2.0) % Neut # (Auto) 7.3 H (1.8-7.0) K/uL Lymph # (Auto) 1.6 (1.0-4.3) K/uL [place] # (Auto) 0.7 (0.0-0.8) K/uL Eos # (Auto) 0.0 (0.0-0.7) K/uL Baso # (Auto) 0.0 (0.0-0.2) K/uL PT 14.4 H (9.7-12.2) SECONDS INR 1.3 APTT 27 (21-34) SECONDS Puncture Site pCO2 (35-45) mm/Hg pO2 (80-100) mm/Hg HCO3 (21-28) mmol/L ABG pH (7.35-7.45) ABG Total CO2 (22-28) mmol/L ABG O2 Saturation (95-98) % ABG Base Excess (-2.0-3.0) mmol/L ABG Hemoglobin (11.7-17.4) g/dL ABG Carboxyhemoglobin (0.5-1.5) % POC ABG HHb (Measured) (0.0-5.0) % ABG Methemoglobin (0.0-3.0) % Davi Test Hgb O2 Saturation (95.0-98.0) % Liter Flow Sodium 141 (132-148) mmol/L Potassium 4.7 (3.6-5.2) mmol/L Chloride 104 (98-107) mmol/L Carbon Dioxide 19 L (22-30) mmol/L Anion Gap 23 H (10-20) BUN 31 H (9-20) mg/dL Creatinine 1.3 (0.8-1.5) mg/dL Est GFR ( Amer) > 60 Est GFR (Non-Af Amer) 56 Random Glucose 130 H (75-110) mg/dL Hemoglobin A1c (4.2-6.5) % Calcium 9.4 (8.6-10.4) mg/dl Phosphorus (2.5-4.5) mg/dL Magnesium (1.6-2.3) mg/dL Total Bilirubin 1.4 H (0.2-1.3) mg/dL AST 82 H (17-59) U/L ALT 129 H D (21-72) U/L Alkaline Phosphatase 232 H D (38-126) U/L Troponin I 0.0550 (0.00-0.120) ng/mL NT-Pro-B Natriuret Pep 12322 H (0-900) pg/mL Total Protein 6.9 (6.3-8.3) g/dL Albumin 3.6 (3.5-5.0) g/dL Globulin 3.3 (2.2-3.9) gm/dL Albumin/Globulin Ratio 1.1 (1.0-2.1) Laboratory Results - last 24 hr 06/28/17 06/28/17 06/28/17 17:44 17:44 21:19 WBC 9.7 D RBC 4.42 Hgb 13.1 Hct 39.5 MCV 89.4 D MCH 29.6 MCHC 33.1 RDW 14.5 Plt Count 178 MPV 10.8 Neut % (Auto) 75.4 H Lymph % (Auto) 16.7 L [place] % (Auto) 7.4 Eos % (Auto) 0.1 Baso % (Auto) 0.4 Neut # (Auto) 7.3 H Lymph # (Auto) 1.6 [place] # (Auto) 0.7 Eos # (Auto) 0.0 Baso # (Auto) 0.0 PT 14.4 H INR 1.3 APTT 27 Puncture Site pCO2 pO2 HCO3 ABG pH ABG Total CO2 ABG O2 Saturation ABG Base Excess ABG Hemoglobin ABG Carboxyhemoglobin POC ABG HHb (Measured) ABG Methemoglobin Davi Test Hgb O2 Saturation Liter Flow Sodium 141 Potassium 4.7 Chloride 104 Carbon Dioxide 19 L Anion Gap 23 H BUN 31 H Creatinine 1.3 Est GFR ( Amer) > 60 Est GFR (Non-Af Amer) 56 Random Glucose 130 H Hemoglobin A1c Calcium 9.4 Phosphorus Magnesium Total Bilirubin 1.4 H AST 82 H ALT 129 H D Alkaline Phosphatase 232 H D Troponin I 0.0550 NT-Pro-B Natriuret Pep 90600 H Total Protein 6.9 Albumin 3.6 Globulin 3.3 Albumin/Globulin Ratio 1.1 06/29/17 06/29/17 06/29/17 04:25 04:25 04:25 WBC RBC Hgb Hct MCV MCH MCHC RDW Plt Count MPV Neut % (Auto) Lymph % (Auto) [place] % (Auto) Eos % (Auto) Baso % (Auto) Neut # (Auto) Lymph # (Auto) [place] # (Auto) Eos # (Auto) Baso # (Auto) PT INR APTT 72 H D Puncture Site pCO2 pO2 HCO3 ABG pH ABG Total CO2 ABG O2 Saturation ABG Base Excess ABG Hemoglobin ABG Carboxyhemoglobin POC ABG HHb (Measured) ABG Methemoglobin Davi Test Hgb O2 Saturation Liter Flow Sodium 140 Potassium 4.9 Chloride 106 Carbon Dioxide 22 Anion Gap 17 BUN 31 H Creatinine 1.3 Est GFR ( Amer) > 60 Est GFR (Non-Af Amer) 56 Random Glucose 107 Hemoglobin A1c 6.1 Calcium 8.9 Phosphorus 4.8 H Magnesium 2.5 H Total Bilirubin 1.3 AST 131 H D ALT 161 H D Alkaline Phosphatase 218 H Troponin I NT-Pro-B Natriuret Pep 74483 H Total Protein 5.9 L Albumin 3.0 L Globulin 2.9 Albumin/Globulin Ratio 1.0 06/29/17 06/29/17 06/29/17 04:25 06:36 10:53 WBC 7.4 RBC 4.01 L Hgb 11.8 L Hct 35.3 MCV 88.2 MCH 29.6 MCHC 33.5 RDW 14.8 H Plt Count 139 MPV 10.5 Neut % (Auto) 73.2 Lymph % (Auto) 18.7 L [place] % (Auto) 7.0 Eos % (Auto) 0.0 Baso % (Auto) 1.1 Neut # (Auto) 5.4 Lymph # (Auto) 1.4 [place] # (Auto) 0.5 Eos # (Auto) 0.0 Baso # (Auto) 0.1 PT INR APTT 70 H Puncture Site Rb pCO2 27 L pO2 76 L HCO3 23.1 ABG pH 7.48 H ABG Total CO2 20.9 L ABG O2 Saturation 97.0 ABG Base Excess -2.3 L ABG Hemoglobin 11.7 ABG Carboxyhemoglobin 1.7 H POC ABG HHb (Measured) 2.9 ABG Methemoglobin 0.9 Davi Test Na Hgb O2 Saturation 94.5 L Liter Flow 3.0 Sodium Potassium Chloride Carbon Dioxide Anion Gap BUN Creatinine Est GFR ( Amer) Est GFR (Non-Af Amer) Random Glucose Hemoglobin A1c Calcium Phosphorus Magnesium Total Bilirubin AST ALT Alkaline Phosphatase Troponin I NT-Pro-B Natriuret Pep Total Protein Albumin Globulin Albumin/Globulin Ratio EKG/Cardiology Studies: Cardiology / EKG Studies 06/28/17 17:22 EKG [ELECTROCARDIOGRAM] Stat Comment: Mode Of Transportation: BED Reason For Exam: cp 06/29/17 09:00 ELECTROCARDIOGRAM Routine Comment: Mode Of Transportation: PORTABLE Reason For Exam: Pulmonary embolism Critical Care Progress Note - Nutrition Nutrition: Nutrition Category Date Time Status Heart Healthy Diet [DIET] Diets 06/29/17 Breakfast Active Attending/Attestation - Attestation I have personally seen and examined this patient.: Yes I have fully participated in the care of the patient.: Yes I have reviewed all pertinent clinical information: Yes Notes (Text): 06/29/17 17:20 patient seen and examinedin the intensive care unit. 61-year-old male admitted with large pulmonary embolism, s/p Pulmonary artery angiogram, placement of right and left EKOS lysis catherer. echocardiogram this severe LV dysfunction Venous Doppler of lower extremity Continue present treatment for now
--- NOTE | 2017-06-29 09:50 | RAD ---
Chest x-ray single frontal view History: Chest pain. Comparison: 06/17/2017 Findings: Moderate loculated left pleural effusion. Mild venous congestion. Mild linear atelectasis at the right lung base. Bilateral hilar prominence. Cardiomegaly. Degenerative changes in the spine and shoulders. Upper lobe granulomatous changes. Impression: Moderate loculated left pleural effusion. Mild venous congestion. Mild linear atelectasis at the right lung base. Bilateral hilar prominence. Cardiomegaly. Degenerative changes in the spine and shoulders. Upper lobe granulomatous changes.
[2017-06-29] MEDS: Pantoprazole 40 mg EC Tab PO SCH (10:14)
[2017-06-29] MEDS ORDERED: Perflutren Lipid Microsphere 1.5 ML SUS IV ONE (11:20)
--- NOTE | 2017-06-29 12:30 | CARD ---
APPROVED REPORT EKG Measurement Heart [id number] VT [id number] [id number] <Conclusion> Sinus tachycardia Possible Left atrial enlargement Right superior axis deviation Nonspecific intraventricular block Abnormal ECG
[2017-06-29] MEDS ORDERED: [UNRECOGNIZED DRUG - OTHER] IV ONE (14:15)
[2017-06-29] MEDS ORDERED: Iodixanol 320 MG/ML 200 ML BOTTLE IV ONE (14:15)
[2017-06-29] MEDS ORDERED: Lidocaine/Epinephrine 1% 1:100000 10 ML IJ ONE (14:28)
[2017-06-29] MEDS ORDERED: Lidocaine 2% MPF (5 ml) Inj ONE (14:29)
--- NOTE | 2017-06-29 15:02 | PCM.SURG1 ---
Surgeon's Initial Post Op Note - Surgeon's Notes Surgeon: Shoaib Barnett MD Public Affairs Officer: NONE Type of Anesthesia: Local Pre-Operative Diagnosis: Pulmonary embolism, hemodynamic instability Operative Findings: Pulmonary artery angiogram showed significant right and left pumonary artery embolism consistent to findings seen on CTA. Post-Operative Diagnosis: Pulmonary embolism, hemodynamic instability Operation Performed: Pulmonary artery angiogram, placement of right and left EKOS lysis catherer, 18 cm and 18 cm. Specimen/Specimens Removed: NONE Estimated Blood Loss: EBL {In ML}: 4 Blood Products Given: N/A Drains Used: No Drains Post-Op Condition: Poor Date of Surgery/Procedure: 06/29/17 Time of Surgery/Procedure: 15:00
[2017-06-29] MEDS ORDERED: Sodium Chloride 0.9% 1,000 ML IV SCH (15:15)
--- NOTE | 2017-06-29 18:11 | CP.PCM.CON ---
History of Present Illness - History of Present Illness History of Present Illness: admitted with large bilat pulmonary emboli s/p ekos directed cath lysis of clot Review of Systems - Cardiovascular Cardiovascular: Dyspnea, Dyspnea on Exertion - Respiratory Respiratory: Dyspnea on Exertion Past Patient History - Past Medical History & Family History Past Medical History?: Yes - Past Social History Smoking Status: Never Smoked - CARDIAC Hx Hypertension: Yes - MUSCULOSKELETAL/RHEUMATOLOGICAL Hx Falls: No Hx Fractures: Yes (pelvic fracture 35 yrs ago) - GASTROINTESTINAL Hx Gastrointestinal Disorders: No - GENITOURINARY/GYNECOLOGICAL Hx Genitourinary Disorders: No - PSYCHIATRIC Hx Substance Use: No - SURGICAL HISTORY Hx Surgeries: No - ANESTHESIA Hx Anesthesia: No Hx Anesthesia Reactions: No Hx Malignant Hyperthermia: No Has any member of the family had a problem w/ anesthesia?: No Meds Allergies/Adverse Reactions: Allergies Allergy/AdvReac Type Severity Reaction Status Date / Time No Known Allergies Allergy Verified 06/28/17 17:20 - Medications Medications: Current Medications Ceftriaxone Sodium 1 gm/ (Sodium Chloride) 100 mls @ 100 mls/hr IVPB DAILY [facility] PRN Reason: Protocol Last Admin: 06/29/17 10:15 Dose: 100 mls/hr Dextrose (Dextrose 5% In Water 1000 Ml) 1,000 mls @ 50 mls/hr IV .Q20H [facility] Last Admin: 06/28/17 22:45 Dose: Not Given Alteplase, Recombinant 10 mg/ (Sodium Chloride) 500 mls @ 25 mls/hr IV ONCE ONE Stop: 06/30/17 09:59 Last Admin: 06/29/17 14:00 Dose: 25 mls/hr Alteplase, Recombinant 10 mg/ (Sodium Chloride) 500 mls @ 25 mls/hr IV ONCE ONE Stop: 06/30/17 09:59 Last Admin: 06/29/17 14:00 Dose: 25 mls/hr Sodium Chloride (Sodium Chloride 0.9%) 1,000 mls @ 35 mls/hr IV .Q24H [facility] Last Admin: 06/29/17 14:00 Dose: 35 mls/hr Heparin Sodium (Porcine) (Heparin 1000 Units/500 Ml Ns) 500 mls @ 5 mls/hr IV ONCE ONE Stop: 07/03/17 19:04 Pantoprazole Sodium (Protonix Ec Tab) 40 mg PO DAILY [facility] Last Admin: 06/29/17 10:14 Dose: 40 mg Physical Exam - Constitutional Appears: Chronically Ill - Head Exam Head Exam: ATRAUMATIC, NORMOCEPHALIC - Eye Exam Eye Exam: Normal appearance - Respiratory Exam Respiratory Exam: Decreased Breath Sounds - Cardiovascular Exam Cardiovascular Exam: +S1, +S2, +S4 - GI/Abdominal Exam GI & Abdominal Exam: Normal Bowel Sounds - Rectal Exam Rectal Exam: Deferred - Neurological Exam Neurological exam: Alert, Oriented x3 - Psychiatric Exam Psychiatric exam: Normal Affect, Normal Mood - Skin Skin Exam: Intact Results - Vital Signs Recent Vital Signs: Last Vital Signs Temp 98.6 F 06/29/17 12:00 Pulse 102 H 06/29/17 16:55 Resp 19 06/29/17 16:55 BP 94/67 L 06/29/17 16:55 Pulse Ox 97 06/29/17 16:55 - Labs Result Diagrams: 06/29/17 04:25 06/29/17 04:25 Labs: Laboratory Results - last 24 hr 06/28/17 06/28/17 06/28/17 17:44 17:44 21:19 WBC 9.7 D RBC 4.42 Hgb 13.1 Hct 39.5 MCV 89.4 D MCH 29.6 MCHC 33.1 RDW 14.5 Plt Count 178 MPV 10.8 Neut % (Auto) 75.4 H Lymph % (Auto) 16.7 L [place] % (Auto) 7.4 Eos % (Auto) 0.1 Baso % (Auto) 0.4 Neut # (Auto) 7.3 H Lymph # (Auto) 1.6 [place] # (Auto) 0.7 Eos # (Auto) 0.0 Baso # (Auto) 0.0 PT 14.4 H INR 1.3 APTT 27 Puncture Site pCO2 pO2 HCO3 ABG pH ABG Total CO2 ABG O2 Saturation ABG Base Excess ABG Hemoglobin ABG Carboxyhemoglobin POC ABG HHb (Measured) ABG Methemoglobin Davi Test Hgb O2 Saturation Liter Flow Sodium 141 Potassium 4.7 Chloride 104 Carbon Dioxide 19 L Anion Gap 23 H BUN 31 H Creatinine 1.3 Est GFR ( Amer) > 60 Est GFR (Non-Af Amer) 56 Random Glucose 130 H Hemoglobin A1c Calcium 9.4 Phosphorus Magnesium Total Bilirubin 1.4 H AST 82 H ALT 129 H D Alkaline Phosphatase 232 H D Troponin I 0.0550 NT-Pro-B Natriuret Pep 57433 H Total Protein 6.9 Albumin 3.6 Globulin 3.3 Albumin/Globulin Ratio 1.1 06/29/17 06/29/17 06/29/17 04:25 04:25 04:25 WBC RBC Hgb Hct MCV MCH MCHC RDW Plt Count MPV Neut % (Auto) Lymph % (Auto) [place] % (Auto) Eos % (Auto) Baso % (Auto) Neut # (Auto) Lymph # (Auto) [place] # (Auto) Eos # (Auto) Baso # (Auto) PT INR APTT 72 H D Puncture Site pCO2 pO2 HCO3 ABG pH ABG Total CO2 ABG O2 Saturation ABG Base Excess ABG Hemoglobin ABG Carboxyhemoglobin POC ABG HHb (Measured) ABG Methemoglobin Davi Test Hgb O2 Saturation Liter Flow Sodium 140 Potassium 4.9 Chloride 106 Carbon Dioxide 22 Anion Gap 17 BUN 31 H Creatinine 1.3 Est GFR ( Amer) > 60 Est GFR (Non-Af Amer) 56 Random Glucose 107 Hemoglobin A1c 6.1 Calcium 8.9 Phosphorus 4.8 H Magnesium 2.5 H Total Bilirubin 1.3 AST 131 H D ALT 161 H D Alkaline Phosphatase 218 H Troponin I NT-Pro-B Natriuret Pep 52470 H Total Protein 5.9 L Albumin 3.0 L Globulin 2.9 Albumin/Globulin Ratio 1.0 06/29/17 06/29/17 06/29/17 04:25 06:36 10:53 WBC 7.4 RBC 4.01 L Hgb 11.8 L Hct 35.3 MCV 88.2 MCH 29.6 MCHC 33.5 RDW 14.8 H Plt Count 139 MPV 10.5 Neut % (Auto) 73.2 Lymph % (Auto) 18.7 L [place] % (Auto) 7.0 Eos % (Auto) 0.0 Baso % (Auto) 1.1 Neut # (Auto) 5.4 Lymph # (Auto) 1.4 [place] # (Auto) 0.5 Eos # (Auto) 0.0 Baso # (Auto) 0.1 PT INR APTT 70 H Puncture Site Rb pCO2 27 L pO2 76 L HCO3 23.1 ABG pH 7.48 H ABG Total CO2 20.9 L ABG O2 Saturation 97.0 ABG Base Excess -2.3 L ABG Hemoglobin 11.7 ABG Carboxyhemoglobin 1.7 H POC ABG HHb (Measured) 2.9 ABG Methemoglobin 0.9 Davi Test Na Hgb O2 Saturation 94.5 L Liter Flow 3.0 Sodium Potassium Chloride Carbon Dioxide Anion Gap BUN Creatinine Est GFR ( Amer) Est GFR (Non-Af Amer) Random Glucose Hemoglobin A1c Calcium Phosphorus Magnesium Total Bilirubin AST ALT Alkaline Phosphatase Troponin I NT-Pro-B Natriuret Pep Total Protein Albumin Globulin Albumin/Globulin Ratio Assessment & Plan (1) Pulmonary embolism Status: Acute Comment: on TPA (2) Lung nodule seen on imaging study Status: Acute
--- NOTE | 2017-06-29 18:25 | CARD ---
APPROVED REPORT EXAM: Two-dimensional and M-mode echocardiogram with Doppler and color Doppler. Other Information Quality : GoodRhythm : INDICATION Pulmonary Embolism Echo Enhancing Agent Indication: Rule out thrombus Agent/Amount Used: Definity 2D DIMENSIONS IVSd1.0 (0.7-1.1cm)LVDd6.5 (3.9-5.9cm) PWd1.1 (0.7-1.1cm)LVDs6.1 (2.5-4.0cm) FS (%) 6.5 %LVEF (%)14.3 (>50%) M-Mode DIMENSIONS Left Atrium (MM)4.25 (2.5-4.0cm)Aortic Root4.08 (2.2-3.7cm) Aortic Cusp Exc.2.28 (1.5-2.0cm) Mitral Valve MV E [id number]/sE/A ratio0.0 TDI E/Lateral E'0.0E/Medial E'0.0 Tricuspid Valve TR Peak [id number]/sTR Peak Gr.17mmHg LEFT VENTRICLE The Left Ventricle is moderately dilated. There is borderline to mild concentric left ventricular hypertrophy. The systolic function is severely impaired. The Ejection Fraction is <20%. There is global hypokinesis of the left ventricle. Elevated left atrial pressure. RIGHT VENTRICLE The right ventricle is mildly to moderately dilated. Systolic function is moderately reduced. ATRIA The left atrium is moderately dilated. The right atrium is moderately dilated. AORTIC VALVE The aortic valve is normal in structure. No aortic regurgitation is present. MITRAL VALVE The mitral valve is normal in structure. Mitral regurgitation is mild. TRICUSPID VALVE The tricuspid valve is normal in structure. There is mild tricuspid regurgitation. PULMONIC VALVE The pulmonary valve is normal in structure. There is mild pulmonic valvular regurgitation. GREAT VESSELS The aortic root is normal in size. Dilated IVC with poor inspiration collapse is consistent with elevated right atrial pressure. PERICARDIAL EFFUSION There is no gross pericardial effusion. <Conclusion> The Left Ventricle is moderately dilated. There is severe global hypokinesis of the left ventricle. The systolic function is severely impaired. The Ejection Fraction is <20%. The right ventricle is mildly to moderately dilated. Systolic function is moderately reduced. There is mild mitral and tricuspid regurgitation. Dilated IVC with poor inspiration collapse is consistent with elevated right atrial pressure. There is no gross pericardial effusion. Contrast enhanced imaging demostrates severe global hypokinesis. No gross left ventricular thrombus noted.
--- NOTE | 2017-06-30 03:49 | CON ---
DATE: HISTORY OF PRESENT ILLNESS: The patient is 61-year-old male with no significant prior medical history. The patient states that he has been experiencing exertional dyspnea over the past 3 weeks. He sought medical care with his primary care physician who has been working him up for dyspnea. He states that over the past 2 to 3 days, he has been experiencing cramping and swelling in his bilateral lower extremities. This was associated with a marked progression of his shortness of breath. He was seen in the emergency room last night, where CT scan revealed presence of bilateral pulmonary emboli. He denies experiencing any significant chest pain, palpitations, dizziness, or loss of consciousness. He does admit to poor appetite and recent weight loss. He was noted to have a marked elevation of his BNP level. Cardiology consultation was obtained for further evaluation for his progressive symptoms of dyspnea and bilateral PE. PAST MEDICAL HISTORY: He states recently diagnosed hypertension. PAST SURGICAL HISTORY: None. MEDICATIONS: States that he was recently started on metoprolol. ALLERGIES: NONE KNOWN. SOCIAL HISTORY: Denies smoking, drinking, or drug use. FAMILY HISTORY: States that his father required a valve replacement due to rheumatic fever and lupus. Mother with diabetes mellitus. REVIEW OF SYSTEMS: As per HPI. PHYSICAL EXAMINATION: GENERAL: An ill-appearing male who is in no active distress. VITAL SIGNS: As follows: Blood pressure 100/60, pulse rate 100, respiratory rate 18, and temperature afebrile. HEENT: Unremarkable. NECK: Supple. No bruits were heard. HEART: S1 and S2 were very distant. No murmur was audible. LUNGS: Poor effort. No rales were present. ABDOMEN: Soft. EXTREMITIES: Edema was present bilaterally. LABORATORY DATA: As follows: CBC on admission; white count 9.7, hemoglobin 13, hematocrit 40, and platelet count 178,000. PT 14, INR 1.3, and PTT 27. His chemistry, sodium 141, potassium 4.7, chloride 104, bicarbonate 19, BUN 31, creatinine 1.3. AST is 82, ALT is 129. Troponin is 0.05. ProBNP was 21,700. His electrocardiogram reveals a sinus tachycardia, a nonspecific intraventricular conduction delay, possible left atrial enlargement. His chest x-ray performed last night on ER presentation reveals moderate loculated left pleural effusion, mild venous congestion, mild linear atelectasis at the right base, hilar prominence, cardiomegaly. The chest CT reveals multiple prominent filling defects suggestive of prominent pulmonary emboli, present in the proximal vessels on both sides including the main right and left pulmonary arteries. A clot burden is noted to be large. Both ventricles appear enlarged, likely from preexisting disease. A 9 to 10 mm pulmonary nodule was noted at the right lung base. IMPRESSION: A 61-year-old male who presents with progressive dyspnea over the past 3 weeks. It acutely worsened approximately 2 to 3 days ago, when he developed lower extremity edema, pain, and developed severe shortness of breath. The patient has markedly abnormal EKG with an intraventricular conduction delay. His CT scan revealed bilateral pulmonary embolus with a large clot burden. Earlier in the day this morning, he had a systolic blood pressure of 87 mmHg. An echocardiogram performed at the bedside reveals severe left ventricular dysfunction. There is diffuse hypokinesis present. There appears to be two prosthesis at the present time. The patient clearly has a cardiomyopathy and acute pulmonary embolus with large thrombus burden in both right and left pulmonary arteries. RECOMMENDATIONS: In view of the patient's recent unstable hemodynamics and large thrombus burden, lytic therapy certainly can be considered. We will obtain a consult from the interventional radiologist to consider the EKOS system to deliver TPA directly to the thrombus with associated ultrasounds. We will continue heparin at the present time. Additionally, in view of his severe LV dysfunction, we will consult the heart failure team at [facility] for further care. Chris Booker DO
[2017-06-30 06:35] LABS: BASO % 0.5 % (0.0-2.0); EOS % 0.2 % (0.0-4.0); LYMPH # 1.3 K/uL (1.0-4.3); MEAN CELL VOLUME 87.8 fL (80.0-94.0); MEAN CORPUSCULAR HEMOGLOBIN 29.9 pg (27.0-31.0); MEAN PLATELET VOLUME 10.8 fL (7.2-11.7); MONO # 0.5 K/uL (0.0-0.8); MONO % 7.5 % (0.0-10.0); NEUT # 5.1 K/uL (1.8-7.0); NEUT % 72.8 % (50.0-75.0); NRBC % 0.2 % (0.0-2.0); RBC 3.7 Mil/uL (4.40-5.90); RED CELL DISTRIBUTION WIDTH 14.5 % (11.5-14.5); WHITE BLOOD COUNT 7.1 K/uL (4.8-10.8)
[2017-06-30 06:44] LABS: INR 1.3
[2017-06-30 07:14] LABS: ALB/GLOB RATIO 0.9 (1.0-2.1); ALBUMIN 2.7 g/dL (3.5-5.0); ALT/SGPT 136 U/L (21-72); AST/SGOT 90 U/L (17-59); BLOOD UREA NITROGEN 25 mg/dL (9-20); CALCIUM 8.1 mg/dl (8.6-10.4); GFR AFRICAN-AMERICAN > 60; GFR NON-AFRICAN AMERICAN > 60
--- NOTE | 2017-06-30 08:40 | HP ---
HISTORY OF PRESENT ILLNESS: I had seen Don about 3 to 4 weeks ago. He had a workup with blood test and he was being sent to Dr. Hunt for a cardiac stress test. He did not make it. Over the past 2 days, his left leg started swelling and he was sent to the emergency room, where he was found to have a pulmonary embolism. He has a past medical history of hypertension, shortness of breath, getting worse over the past 2 weeks. He could not walk 5 blocks, when the left leg got swollen. He has had no insurance, it is hard getting the test done as outpatient. He has no acute vision or hearing changes. No sore throat. He had no chest pains and he had shortness of breath, but not at rest. No cough. His left calf did swell up, but no pain and that started 3 days ago. PHYSICAL EXAMINATION: VITAL SIGNS: He has a 98.5 temp, 101 pulse, 15 respiratory rate, with a 97/70 blood pressure, 96% O2 saturation on room air. GENERAL: Alert and oriented x3. He is comfortable, talking a lot. HEENT: His head is atraumatic, normocephalic. Extraocular muscles are intact. Pupils are reactive to light and accommodation. Throat is moist. NECK: Supple. Thyroid midline. No palpable appreciable lymphadenopathy. HEART: Regular rate. LUNGS: Decreased breath sounds, but normal. No wheezes, no rhonchi, no rales. ABDOMEN: Soft, nontender. Positive bowel sounds. EXTREMITIES: His left calf is swollen. The right calf is normal, nontender though. NEUROLOGIC: Alert and oriented x3. SKIN: For the most part, I could appreciate was negative. LABORATORY DATA: He has a 140 sodium, potassium 4.9, BUN of 31, creatinine 1.3, GFR is 56, sugar is 107, calcium is 8.9, phosphorus 4.8, magnesium is 2.5, total bilirubin is 4.3, AST is 131, ALT is 151, alk phos 218. BNP was 21,000, of 17,000. INR was 1.3, PTT was 72. He has a 7.4 white count, 11.8 hemoglobin, 37.3 hematocrit, with 139 platelets. He has venous Dopplers pending. CT of chest is pending. Chest x-ray is pending. EKG is pending. ASSESSMENT AND PLAN: I believe his pulmonary embolism though has already been discussed with the emergency room doctor and he has a left calf left calf, it is all new over the past 2 or 3 days. We will have to consult Cardiopulmonary, hope he has heparin IV. I am hoping that we can get him on Eliquis versus Coumadin. have any He is also on Rocephin and Zithromax for pneumonia coverage. Check his labs tomorrow. Continue aggressive treatment and care of his advanced pneumonia and pulmonary embolus, most probably left calf deep venous thrombosis and pneumonia. Hua Lee DO MTDEstiven
[2017-06-30] MEDS ORDERED: Iodixanol 320 MG/ML 100 ML BOTTLE IV ONE (09:22)
--- NOTE | 2017-06-30 09:47 | PCM.SURG1 ---
Surgeon's Initial Post Op Note - Surgeon's Notes Surgeon: Shoaib Barnett MD Marking Stitcher: NONE Type of Anesthesia: None Pre-Operative Diagnosis: Pulmonary embolism Operative Findings: Post catheter directed thrombolysis pulmonary artery angiogram showed improved flow in the PA. Post-Operative Diagnosis: Pulmnary embolism Operation Performed: Post catheter directed thrombolysis pulmonary artery angiogram Specimen/Specimens Removed: none Estimated Blood Loss: EBL {In ML}: 5 Blood Products Given: N/A Drains Used: No Drains Post-Op Condition: Fair Date of Surgery/Procedure: 06/30/17 Time of Surgery/Procedure: 09:45
[2017-06-30] MEDS: Pantoprazole 40 mg EC Tab PO SCH (10:33)
[2017-06-30] MEDS: Heparin25000 units/250ml 1/2NS 25,000 UNITS/250 ML BAG IV PRN (10:56)
--- NOTE | 2017-06-30 10:58 | CP.CCUPN ---
<Facundo Brizuela - Last Filed: 06/30/17 11:26> CCU Subjective - Physician Review Subjective (Free Text): 06/29/17 09:48 Patient seen and examined. He states that he has been unable to walk a block before getting short of breath for the last couple of weeks. He has also had leg pain which prompted him to seek medical attention. Patient denies history of travel or trauma. No family history of clots; however, he did state however that his father had lupus. 06/30/17 10:40 Patient seen and examined. Patient with poor sleep, insisting on sleeping upright despite EKOS catheters in place. CCU Objective - Vital Signs / Intake & Output Vital Signs (Last 4 hours): Vital Signs Pulse Resp BP Pulse Ox 06/30/17 08:00 98 H 37 H 118/88 94 L 06/30/17 07:00 99 H 21 114/83 98 Intake and Output (Last 8hrs): Intake & Output 06/29/17 06/30/17 06/30/17 22:59 06:59 14:59 Intake Total 1150 1520 260 Output Total 0 550 200 Balance 1150 970 60 Weight 167 lb 5 oz Intake: Intake, IV Amount 910 1040 260 Right EKOS Sheath #1 - 245 280 70 Port 1 Right EKOS Sheath #1 - 35 40 10 Port 2 Right EKOS Sheath #1 - 175 200 50 Port 3 Right EKOS Sheath #2 - 245 280 70 Port 1 Right EKOS Sheath #2 - 35 40 10 Port 2 Right EKOS Sheath #2 - 175 200 50 Port 3 Oral 240 480 Output: Urine 0 550 200 Urine, Voided 0 550 200 Stool 0 Other: # Voids Urine, Voided 1 1 1 - Physical Exam Head: Positive for: Atraumatic, Normocephalic Pupils: Positive for: PERRL Extroacular Muscles: Positive for: EOMI Mouth: Positive for: Moist Mucous Membranes Respiratory/Chest: Positive for: Clear to Auscultation. Negative for: Wheezes, Rales, Rhonchi Cardiovascular: Positive for: Normal S1, S2, Tachycardic Abdomen: Positive for: Normal Bowel Sounds. Negative for: Tenderness, Distention Upper Extremity: Negative for: Edema Lower Extremity: Positive for: CALF TENDERNESS. Negative for: Edema Neurological: Positive for: GCS=15 Skin: Positive for: Warm, Dry Psychiatric: Positive for: Alert, Oriented x 3 - Medications Active Medications: Active Medications Generic Name Dose Route Start Last Admin Trade Name Freq PRN Reason Stop Dose Admin Ceftriaxone Sodium 1 gm/ 100 mls @ 100 mls/hr 06/29/17 10:00 06/30/17 10:32 Sodium Chloride IVPB 100 mls/hr DAILY BECK Administration Protocol Dextrose 1,000 mls @ 50 mls/hr 06/28/17 22:45 06/29/17 19:15 Dextrose 5% In Water 1000 Ml IV Not Given .Q20H BECK Sodium Chloride 1,000 mls @ 35 mls/hr 06/29/17 15:15 06/29/17 14:00 Sodium Chloride 0.9% IV 35 mls/hr .Q24H BECK Administration Heparin Sodium (Porcine) 500 mls @ 5 mls/hr 06/29/17 15:05 Heparin 1000 Units/500 Ml Ns IV 07/03/17 19:04 ONCE ONE Heparin Sodium/Sodium Chloride 25,000 units in 250 mls @ 13.661 mls/hr 09:47 Heparin 36021 Units/250ml 1/2 Normal Saline IV .[id number] PRN ADJUST RATE PER PROTOCOL Protocol 18 UNITS/KG/HR Lisinopril 2.5 mg 06/30/17 10:00 Zestril PO DAILY BECK Metoprolol Tartrate 12.5 mg 06/30/17 10:00 06/30/17 10:32 Lopressor PO 12.5 mg BID BECK Administration Pantoprazole Sodium 40 mg 06/29/17 10:00 06/30/17 10:33 Protonix Ec Tab PO 40 mg DAILY BECK Administration - Patient Studies Lab Studies: Lab Studies 06/30/17 06/30/17 06/30/17 Range/Units 06:26 06:26 06:25 WBC 7.1 (4.8-10.8) K/uL RBC 3.70 L (4.40-5.90) Mil/uL Hgb 11.0 L (12.0-18.0) g/dL Hct 32.5 L (35.0-51.0) % MCV 87.8 (80.0-94.0) fL MCH 29.9 (27.0-31.0) pg MCHC 34.0 (33.0-37.0) g/dL RDW 14.5 (11.5-14.5) % Plt Count 120 L (130-400) K/uL MPV 10.8 (7.2-11.7) fL Neut % (Auto) 72.8 (50.0-75.0) % Lymph % (Auto) 19.0 L (20.0-40.0) % [place] % (Auto) 7.5 (0.0-10.0) % Eos % (Auto) 0.2 (0.0-4.0) % Baso % (Auto) 0.5 (0.0-2.0) % Neut # (Auto) 5.1 (1.8-7.0) K/uL Lymph # (Auto) 1.3 (1.0-4.3) K/uL [place] # (Auto) 0.5 (0.0-0.8) K/uL Eos # (Auto) 0.0 (0.0-0.7) K/uL Baso # (Auto) 0.0 (0.0-0.2) K/uL Differential Comment PT 15.0 H (9.7-12.2) SECONDS INR 1.3 APTT 35 H D (21-34) SECONDS Sodium 140 (132-148) mmol/L Potassium 4.5 (3.6-5.2) mmol/L Chloride 110 H (98-107) mmol/L Carbon Dioxide 20 L (22-30) mmol/L Anion Gap 15 (10-20) BUN 25 H (9-20) mg/dL Creatinine 1.2 (0.8-1.5) mg/dL Est GFR ( Amer) > 60 Est GFR (Non-Af Amer) > 60 Random Glucose 105 (75-110) mg/dL Calcium 8.1 L (8.6-10.4) mg/dl Phosphorus 3.1 (2.5-4.5) mg/dL Magnesium 2.4 H (1.6-2.3) mg/dL Total Bilirubin 0.8 (0.2-1.3) mg/dL AST 90 H D (17-59) U/L ALT 136 H (21-72) U/L Alkaline Phosphatase 199 H (38-126) U/L Total Protein 5.5 L (6.3-8.3) g/dL Albumin 2.7 L (3.5-5.0) g/dL Globulin 2.9 (2.2-3.9) gm/dL Albumin/Globulin Ratio 0.9 L (1.0-2.1) 06/29/17 Range/Units 10:53 WBC (4.8-10.8) K/uL RBC (4.40-5.90) Mil/uL Hgb (12.0-18.0) g/dL Hct (35.0-51.0) % MCV (80.0-94.0) fL MCH (27.0-31.0) pg MCHC (33.0-37.0) g/dL RDW (11.5-14.5) % Plt Count (130-400) K/uL MPV (7.2-11.7) fL Neut % (Auto) (50.0-75.0) % Lymph % (Auto) (20.0-40.0) % [place] % (Auto) (0.0-10.0) % Eos % (Auto) (0.0-4.0) % Baso % (Auto) (0.0-2.0) % Neut # (Auto) (1.8-7.0) K/uL Lymph # (Auto) (1.0-4.3) K/uL [place] # (Auto) (0.0-0.8) K/uL Eos # (Auto) (0.0-0.7) K/uL Baso # (Auto) (0.0-0.2) K/uL Differential Comment PT (9.7-12.2) SECONDS INR APTT 70 H (21-34) SECONDS Sodium (132-148) mmol/L Potassium (3.6-5.2) mmol/L Chloride (98-107) mmol/L Carbon Dioxide (22-30) mmol/L Anion Gap (10-20) BUN (9-20) mg/dL Creatinine (0.8-1.5) mg/dL Est GFR ( Amer) Est GFR (Non-Af Amer) Random Glucose (75-110) mg/dL Calcium (8.6-10.4) mg/dl Phosphorus (2.5-4.5) mg/dL Magnesium (1.6-2.3) mg/dL Total Bilirubin (0.2-1.3) mg/dL AST (17-59) U/L ALT (21-72) U/L Alkaline Phosphatase (38-126) U/L Total Protein (6.3-8.3) g/dL Albumin (3.5-5.0) g/dL Globulin (2.2-3.9) gm/dL Albumin/Globulin Ratio (1.0-2.1) Laboratory Results - last 24 hr 06/29/17 06/30/17 06/30/17 10:53 06:25 06:26 WBC 7.1 RBC 3.70 L Hgb 11.0 L Hct 32.5 L MCV 87.8 MCH 29.9 MCHC 34.0 RDW 14.5 Plt Count 120 L MPV 10.8 Neut % (Auto) 72.8 Lymph % (Auto) 19.0 L [place] % (Auto) 7.5 Eos % (Auto) 0.2 Baso % (Auto) 0.5 Neut # (Auto) 5.1 Lymph # (Auto) 1.3 [place] # (Auto) 0.5 Eos # (Auto) 0.0 Baso # (Auto) 0.0 Differential Comment PT INR APTT 70 H Sodium 140 Potassium 4.5 Chloride 110 H Carbon Dioxide 20 L Anion Gap 15 BUN 25 H Creatinine 1.2 Est GFR ( Amer) > 60 Est GFR (Non-Af Amer) > 60 Random Glucose 105 Calcium 8.1 L Phosphorus 3.1 Magnesium 2.4 H Total Bilirubin 0.8 AST 90 H D ALT 136 H Alkaline Phosphatase 199 H Total Protein 5.5 L Albumin 2.7 L Globulin 2.9 Albumin/Globulin Ratio 0.9 L 06/30/17 06:26 WBC RBC Hgb Hct MCV MCH MCHC RDW Plt Count MPV Neut % (Auto) Lymph % (Auto) [place] % (Auto) Eos % (Auto) Baso % (Auto) Neut # (Auto) Lymph # (Auto) [place] # (Auto) Eos # (Auto) Baso # (Auto) Differential Comment PT 15.0 H INR 1.3 APTT 35 H D Sodium Potassium Chloride Carbon Dioxide Anion Gap BUN Creatinine Est GFR ( Amer) Est GFR (Non-Af Amer) Random Glucose Calcium Phosphorus Magnesium Total Bilirubin AST ALT Alkaline Phosphatase Total Protein Albumin Globulin Albumin/Globulin Ratio Critical Care Progress Note - Nutrition Nutrition: Nutrition Category Date Time Status Heart Healthy Diet [DIET] Diets 06/29/17 Breakfast Active Assessment/Plan - Assessment and Plan (Free Text) Assessment: This is a 61 year old male with no significant PMHx who presented with dyspnea and leg pain. He was diagnosed with bilateral PE and started on heparin drip. Bedside echo done in anticipation of thrombolytic therapy. Low EF with 2:1 left ventricle to right ventricle ratio but concern for reversal. Patient had Pulmonary artery angiogram with placement of right and left EKOS lysis catheter on 06/29/17. Neuro Awake, alert Cardio Assessment: New systolic heart failure Echocardiogram shows EF 14% Cardiology on consult Lisinopril 2.5 mg PO daily Lopressor 12.5 mg PO daily Pulm Saturating well on nasal cannula Once the thrombolysis is finished, patient resumed on heparin drip. He may eventually transition to a NoAC such as Eliquis. GI Heart Healthy Diet Infectious Disease Assessment: Pneumonia seen on CT scan Rocephin 1 gm IV daily Azithromycin 500 mg IV daily Prophylaxis EKOS catheter directed thrombolysis--transition to heparin drip before switching to a NoAC such as Eliquis Protonix 40 mg PO daily Discussed with Dr. Burr <Lauro Burr - Last Filed: 06/30/17 17:10> CCU Objective - Vital Signs / Intake & Output Vital Signs (Last 4 hours): Vital Signs Temp Pulse Resp BP Pulse Ox 06/30/17 16:00 98.4 F 99 H 19 92 L 06/30/17 15:00 98 H 19 91 L 06/30/17 14:52 96 H 13 109/81 94 L 06/30/17 14:00 97 H 25 H 93 L 06/30/17 13:53 99 H 28 H 106/78 93 L 06/30/17 13:52 114 H 19 91 L Intake and Output (Last 8hrs): Intake & Output 06/30/17 06/30/17 06/30/17 06:59 14:59 22:59 Intake Total 1520 1816 500 Output Total 550 700 250 Balance 970 1116 250 Weight 167 lb 5 oz 167 lb 5 oz Intake: IV 26 Intake, IV Amount 1040 490 Right EKOS Sheath #1 - 280 105 Port 1 Right EKOS Sheath #1 - 40 15 Port 2 Right EKOS Sheath #1 - 200 75 Port 3 Right EKOS Sheath #2 - 280 105 Port 1 Right EKOS Sheath #2 - 40 15 Port 2 Right EKOS Sheath #2 - 200 75 Port 3 Right Wrist 100 Oral 480 1300 500 Output: Urine 550 700 250 Urine, Voided 550 700 250 Other: # Voids Urine, Voided 1 1 1 - Medications Active Medications: Active Medications Generic Name Dose Route Start Last Admin Trade Name Freq PRN Reason Stop Dose Admin Ceftriaxone Sodium 1 gm/ 100 mls @ 100 mls/hr 06/29/17 10:00 06/30/17 10:32 Sodium Chloride IVPB 100 mls/hr DAILY BECK Administration Protocol Sodium Chloride 1,000 mls @ 35 mls/hr 06/29/17 15:15 06/29/17 14:00 Sodium Chloride 0.9% IV 35 mls/hr .Q24H BECK Administration Heparin Sodium (Porcine) 500 mls @ 5 mls/hr 06/29/17 15:05 Heparin 1000 Units/500 Ml Ns IV 07/03/17 19:04 ONCE ONE Heparin Sodium/Sodium Chloride 25,000 units in 250 mls @ 13.661 mls/hr 09:47 06/30/17 12:30 Heparin 68198 Units/250ml 1/2 Normal Saline IV 22 units/kg/hr .[id number] PRN 16.696 mls/hr ADJUST RATE PER PROTOCOL Titration Protocol 18 UNITS/KG/HR Lisinopril 2.5 mg 06/30/17 10:00 06/30/17 10:46 Zestril PO 2.5 mg DAILY BECK Administration Metoprolol Tartrate 12.5 mg 06/30/17 10:00 06/30/17 10:32 Lopressor PO 12.5 mg BID BECK Administration Pantoprazole Sodium 40 mg 06/29/17 10:00 06/30/17 10:33 Protonix Ec Tab PO 40 mg DAILY BECK Administration - Patient Studies Lab Studies: Microbiology Studies 06/28/17 22:54 MRSA Culture (Admit) - Final Naris MRSA NOT DETECTED Lab Studies 06/30/17 06/30/17 06/30/17 Range/Units 11:04 06:26 06:26 WBC (4.8-10.8) K/uL RBC (4.40-5.90) Mil/uL Hgb (12.0-18.0) g/dL Hct (35.0-51.0) % MCV (80.0-94.0) fL MCH (27.0-31.0) pg MCHC (33.0-37.0) g/dL RDW (11.5-14.5) % Plt Count (130-400) K/uL MPV (7.2-11.7) fL Neut % (Auto) (50.0-75.0) % Lymph % (Auto) (20.0-40.0) % [place] % (Auto) (0.0-10.0) % Eos % (Auto) (0.0-4.0) % Baso % (Auto) (0.0-2.0) % Neut # (Auto) (1.8-7.0) K/uL Lymph # (Auto) (1.0-4.3) K/uL [place] # (Auto) (0.0-0.8) K/uL Eos # (Auto) (0.0-0.7) K/uL Baso # (Auto) (0.0-0.2) K/uL Differential Comment PT 15.0 H (9.7-12.2) SECONDS INR 1.3 APTT 31 35 H D (21-34) SECONDS Sodium 140 (132-148) mmol/L Potassium 4.5 (3.6-5.2) mmol/L Chloride 110 H (98-107) mmol/L Carbon Dioxide 20 L (22-30) mmol/L Anion Gap 15 (10-20) BUN 25 H (9-20) mg/dL Creatinine 1.2 (0.8-1.5) mg/dL Est GFR ( Amer) > 60 Est GFR (Non-Af Amer) > 60 Random Glucose 105 (75-110) mg/dL Calcium 8.1 L (8.6-10.4) mg/dl Phosphorus 3.1 (2.5-4.5) mg/dL Magnesium 2.4 H (1.6-2.3) mg/dL Total Bilirubin 0.8 (0.2-1.3) mg/dL AST 90 H D (17-59) U/L ALT 136 H (21-72) U/L Alkaline Phosphatase 199 H (38-126) U/L Total Protein 5.5 L (6.3-8.3) g/dL Albumin 2.7 L (3.5-5.0) g/dL Globulin 2.9 (2.2-3.9) gm/dL Albumin/Globulin Ratio 0.9 L (1.0-2.1) 06/30/17 Range/Units 06:25 WBC 7.1 (4.8-10.8) K/uL RBC 3.70 L (4.40-5.90) Mil/uL Hgb 11.0 L (12.0-18.0) g/dL Hct 32.5 L (35.0-51.0) % MCV 87.8 (80.0-94.0) fL MCH 29.9 (27.0-31.0) pg MCHC 34.0 (33.0-37.0) g/dL RDW 14.5 (11.5-14.5) % Plt Count 120 L (130-400) K/uL MPV 10.8 (7.2-11.7) fL Neut % (Auto) 72.8 (50.0-75.0) % Lymph % (Auto) 19.0 L (20.0-40.0) % [place] % (Auto) 7.5 (0.0-10.0) % Eos % (Auto) 0.2 (0.0-4.0) % Baso % (Auto) 0.5 (0.0-2.0) % Neut # (Auto) 5.1 (1.8-7.0) K/uL Lymph # (Auto) 1.3 (1.0-4.3) K/uL [place] # (Auto) 0.5 (0.0-0.8) K/uL Eos # (Auto) 0.0 (0.0-0.7) K/uL Baso # (Auto) 0.0 (0.0-0.2) K/uL Differential Comment PT (9.7-12.2) SECONDS INR APTT (21-34) SECONDS Sodium (132-148) mmol/L Potassium (3.6-5.2) mmol/L Chloride (98-107) mmol/L Carbon Dioxide (22-30) mmol/L Anion Gap (10-20) BUN (9-20) mg/dL Creatinine (0.8-1.5) mg/dL Est GFR ( Amer) Est GFR (Non-Af Amer) Random Glucose (75-110) mg/dL Calcium (8.6-10.4) mg/dl Phosphorus (2.5-4.5) mg/dL Magnesium (1.6-2.3) mg/dL Total Bilirubin (0.2-1.3) mg/dL AST (17-59) U/L ALT (21-72) U/L Alkaline Phosphatase (38-126) U/L Total Protein (6.3-8.3) g/dL Albumin (3.5-5.0) g/dL Globulin (2.2-3.9) gm/dL Albumin/Globulin Ratio (1.0-2.1) Laboratory Results - last 24 hr 06/30/17 06/30/17 06/30/17 06:25 06:26 06:26 WBC 7.1 RBC 3.70 L Hgb 11.0 L Hct 32.5 L MCV 87.8 MCH 29.9 MCHC 34.0 RDW 14.5 Plt Count 120 L MPV 10.8 Neut % (Auto) 72.8 Lymph % (Auto) 19.0 L [place] % (Auto) 7.5 Eos % (Auto) 0.2 Baso % (Auto) 0.5 Neut # (Auto) 5.1 Lymph # (Auto) 1.3 [place] # (Auto) 0.5 Eos # (Auto) 0.0 Baso # (Auto) 0.0 Differential Comment PT 15.0 H INR 1.3 APTT 35 H D Sodium 140 Potassium 4.5 Chloride 110 H Carbon Dioxide 20 L Anion Gap 15 BUN 25 H Creatinine 1.2 Est GFR ( Amer) > 60 Est GFR (Non-Af Amer) > 60 Random Glucose 105 Calcium 8.1 L Phosphorus 3.1 Magnesium 2.4 H Total Bilirubin 0.8 AST 90 H D ALT 136 H Alkaline Phosphatase 199 H Total Protein 5.5 L Albumin 2.7 L Globulin 2.9 Albumin/Globulin Ratio 0.9 L 06/30/17 11:04 WBC RBC Hgb Hct MCV MCH MCHC RDW Plt Count MPV Neut % (Auto) Lymph % (Auto) [place] % (Auto) Eos % (Auto) Baso % (Auto) Neut # (Auto) Lymph # (Auto) [place] # (Auto) Eos # (Auto) Baso # (Auto) Differential Comment PT INR APTT 31 Sodium Potassium Chloride Carbon Dioxide Anion Gap BUN Creatinine Est GFR ( Amer) Est GFR (Non-Af Amer) Random Glucose Calcium Phosphorus Magnesium Total Bilirubin AST ALT Alkaline Phosphatase Total Protein Albumin Globulin Albumin/Globulin Ratio Critical Care Progress Note - Nutrition Nutrition: Nutrition Category Date Time Status Heart Healthy Diet [DIET] Diets 06/29/17 Breakfast Active Attending/Attestation - Attestation I have personally seen and examined this patient.: Yes I have fully participated in the care of the patient.: Yes I have reviewed all pertinent clinical information: Yes Notes (Text): 06/30/17 17:09 patient seen and examined in the intensive care unit. Status post catheter directed lysis Post catheter directed thrombolysis pulmonary artery angiogram showed improved flow in the PA. Continue IV heparin Cardiology workup for cardiomyopathy Continue present treatment
--- NOTE | 2017-06-30 11:31 | PN ---
DATE: SUBJECTIVE: I saw him in the intensive care unit at [facility]. He is now on Alteplase, Rocephin, dextrose, Pepcid, Protonix and IV fluids. He is feeling well. No chest pain or shortness of breath. He is comfortable in bed. He has got this machine working for him. PHYSICAL EXAMINATION VITAL SIGNS: Temperature 99 axillary, 99 pulse, 114/83 blood pressure, 21 respiratory rate, 98% O2 sat. HEENT: Head is atraumatic and normocephalic. GENERAL: He is very alert. He is very upset. He did not get to sleep last night, he was woken up and go back to sleep. HEART: Regular rate. LUNGS: Decreased breath sounds, but clear. ABDOMEN: Soft. EXTREMITIES: Left leg is swollen. LABORATORY DATA: He has a 7.1 white count, 11 hemoglobin, 32.5 hematocrit with 120 platelets. He has a 140 sodium, potassium 4.9, BUN 31, creatinine 1.3. GFR is 56. Sugar is 107. Hemoglobin A1c is 6.1. Calcium is 8.9. Phosphorus is 4.8. Magnesium is 2.5. Total bili is 1.3, AST is 131, ALT is 151, alk phos 218 total. His BNP is 17,600. 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 He has got large bilateral pulmonary emboli, status post EKOS directed cath lysis of clot. We will continue aggressive treatment and care and check his labs tomorrow. Continue intensive care unit plan, answered many questions from the patient. Hua Lee DO
[2017-07-01] MEDS: Heparin25000 units/250ml 1/2NS 25,000 UNITS/250 ML BAG IV PRN ×2 (00:05→17:44)
[2017-07-01 06:22] LABS: BASO % 0.5 % (0.0-2.0); EOS % 0.5 % (0.0-4.0); HEMOGLOBIN 12.3 g/dL (12.0-18.0); LYMPH # 1.4 K/uL (1.0-4.3); LYMPH % 17.4 % (20.0-40.0); MEAN CELL VOLUME 89.7 fL (80.0-94.0); MEAN CORPUSCULAR HEMOGLOBIN 29.8 pg (27.0-31.0); MEAN CORPUSCULAR HGB CONC 33.2 g/dL (33.0-37.0); MONO # 0.4 K/uL (0.0-0.8); MONO % 5.2 % (0.0-10.0); NEUT # 6.3 K/uL (1.8-7.0); NEUT % 76.4 % (50.0-75.0); NRBC % 0.1 % (0.0-2.0); RBC 4.11 Mil/uL (4.40-5.90); RED CELL DISTRIBUTION WIDTH 15.2 % (11.5-14.5); WHITE BLOOD COUNT 8.2 K/uL (4.8-10.8)
[2017-07-01 06:50] LABS: ALT/SGPT 124 U/L (21-72); AST/SGOT 54 U/L (17-59); BLOOD UREA NITROGEN 20 mg/dL (9-20); CALCIUM 8.3 mg/dl (8.6-10.4); GFR AFRICAN-AMERICAN > 60; GFR NON-AFRICAN AMERICAN > 60
[2017-07-01] MEDS: Pantoprazole 40 mg EC Tab PO SCH (09:49)
--- NOTE | 2017-07-01 10:59 | PN ---
DATE: SUBJECTIVE: I saw him in the intensive care unit. He is off Alteplase. He is just on heparin right now. He seems to be little more happier, moving better, slept well last night, in better spirits. He is not breathing as well as expected. He is still little short of breath in bed. PHYSICAL EXAMINATION: VITAL SIGNS: He has 98.8 temperature, 102 pulse, 101/76 blood pressure, and 98% O2 sat on 2 L nasal cannula. HEENT: Head is atraumatic and normocephalic. HEART: Regular rate. LUNGS: Decreased breath sounds, but clear. ABDOMEN: Soft. EXTREMITIES: No edema. MEDICATIONS: He is currently on ceftriaxone, heparin, IV Lopressor, Protonix, and Zestril. LABORATORY DATA: He has 7.1 white count, 11 hemoglobin, 32.5 hematocrit with 120 platelets. He has 140 sodium, potassium 4.5, BUN 25, creatinine 1.2. GFR is greater than 60. Sugar is 105, calcium 8.1, phosphorus 3.1, magnesium 2.4, total nicole is 0.8, AST is 90, ALT is 136, and alkaline phosphatase 199. 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 He had bilateral pulmonary embolus, deep vein thrombosis, pneumonia, cardiomyopathy. He is status post EKOS. We will continue aggressive treatment and care. We will keep him in the intensive care unit for time being. We will check his labs tomorrow. We will follow. need to be on Eliquis. Hua Lee DO MTDEstiven
--- NOTE | 2017-07-01 12:33 | VASCLAB ---
PROCEDURE: Lower Extremity Venous Duplex Exam. HISTORY: Leg swelling PRIORS: None. TECHNIQUE: Bilateral common femoral, femoral, popliteal and posterior tibial, peroneal and great saphenous veins were evaluated. Flow was assessed with color Doppler, compressibility, assessment of phasic flow and augmentation response. Report prepared by JUAN MANUEL Cobb, RVT FINDINGS: RIGHT: 1. Common Femoral Vein: 1.1. Compressibility - Fully compressible: Thrombus - None : Flow - Phasic: Augmentation -Normal: Reflux - None. 2. Femoral Vein: 2.1. Compressibility - Fully compressible: Thrombus - None : Flow - Phasic: Augmentation -Normal: Reflux - None. 3. Popliteal Vein: 3.1. Compressibility - Partial: Thrombus - Acute : Flow - Absent : Augmentation -None: Reflux - None. 4. Posterior Tibial Vein: 4.1. Compressibility - Partial: Thrombus - Acute: Flow - Absent : Augmentation -None: Reflux - None. 5. Peroneal Vein: 5.1. Compressibility - Partial: Thrombus - Acute: Flow - Absent : Augmentation -None: Reflux - None. 6. Great Saphenous Vein: 6.1. Compressibility - Fully compressible: Thrombus - None: Flow - Phasic: Augmentation - Normal: Reflux - None. LEFT: 1. Common Femoral Vein: 1.1. Compressibility - Fully compressible: Thrombus - None: Flow - Phasic: Augmentation -Normal: Reflux - None. 2. Femoral Vein: 2.1. Compressibility - Fully compressible: Thrombus - None: Flow - Phasic: Augmentation -Normal: Reflux - None. 3. Popliteal Vein: 3.1. Compressibility - Partial: Thrombus - Acute : Flow - Absent : Augmentation -None: Reflux - None. 4. Posterior Tibial Vein: 4.1. Compressibility - Partial: Thrombus - Acute: Flow - Absent : Augmentation -None: Reflux - None. 5. Peroneal Vein: 5.1. Compressibility - Partial: Thrombus - Acute: Flow - Absent : Augmentation -None: Reflux - None. 6. Great Saphenous Vein: 6.1. Compressibility - Fully compressible: Thrombus - None: Flow - Phasic: Augmentation - Normal: Reflux - None. OTHER FINDINGS: ROBERT Tyler noted about the findings. IMPRESSION: Right: Acute thrombosis of the right popliteal, posterior tibial and peroneal veins with mild reduction of the venous return. Left: Acute thrombosis of the left popliteal, posterior tibial and peroneal veins with mild reduction of the venous return.
[2017-07-02 06:45] LABS: HEMOGLOBIN 11.6 g/dL (12.0-18.0); MEAN CELL VOLUME 88.7 fL (80.0-94.0); MEAN CORPUSCULAR HEMOGLOBIN 29.9 pg (27.0-31.0); MEAN CORPUSCULAR HGB CONC 33.7 g/dL (33.0-37.0); MEAN PLATELET VOLUME 11.6 fL (7.2-11.7); RBC 3.89 Mil/uL (4.40-5.90); RED CELL DISTRIBUTION WIDTH 15.1 % (11.5-14.5); WHITE BLOOD COUNT 6.8 K/uL (4.8-10.8)
[2017-07-02 07:09] LABS: ALB/GLOB RATIO 0.9 (1.0-2.1); ALBUMIN 2.6 g/dL (3.5-5.0); ALT/SGPT 109 U/L (21-72); AST/SGOT 56 U/L (17-59); BLOOD UREA NITROGEN 19 mg/dL (9-20); CALCIUM 7.9 mg/dl (8.6-10.4); GFR AFRICAN-AMERICAN > 60; GFR NON-AFRICAN AMERICAN > 60
[2017-07-02] MEDS ORDERED: Sod Polystyrene Sulf 15 gm/60 ml Susp PO ONE (07:48)
[2017-07-02 08:00] LABS: THROMBIN CLOTTING TIME >100 sec (13-19)
[2017-07-02] MEDS: Pantoprazole 40 mg EC Tab PO SCH (09:38)
--- NOTE | 2017-07-02 13:53 | PN ---
DATE: 07/02/2017 SUBJECTIVE: I saw him in the intensive care unit. He is alert, comfortable. He is eating. He got out of bed for a little while yesterday and walking ability. I need to know when I can put him on Eliquis and stop the heparin. Overall, he is stable. PHYSICAL EXAMINATION: VITAL SIGNS: He has a 98.4 temperature, 97 pulse, 98/71 blood pressure, 22 respiratory rate, and 95% O2 sat on 3 L. HEENT: His head is atraumatic and normocephalic. He is alert and talking, smiling. Throat is moist. NECK: Supple. HEART: Regular rate. LUNGS Decreased breath sounds, but clear. ABDOMEN: Soft. EXTREMITIES: Less swelling of the calves, nontender. MEDICATIONS: He is currently on ceftriaxone, heparin drip, Lopressor, Protonix, and Zestril. LABORATORY DATA: He has an SIDRA, which is negative, 6.8 white count, 11.6 hemoglobin, 34.5 hematocrit with 136 platelets. His PTT was 69. He has a 76 pO2 on ABG with a 7.48 pH. Sodium 140, potassium 4.3, BUN 20, creatinine 1 much better than when he came in. GFR is greater than 60. Sugar is 104, calcium is 8.3, phosphorus is 3.4, magnesium 2.3, total bili is 1, AST is 54, ALT is 124, and alkaline phosphatase 171 all improving. Total protein is 6.1. ASSESSMENT AND PLAN: Hopefully, we will get him out of the intensive care unit today and physical therapy to see him. I need to know when I could switch him to Eliquis, stop the heparin and then work on discharge planning. He is here for pulmonary embolus, bilateral lungs. Hua Lee DO YAMILKA
[2017-07-03 06:49] LABS: HEMOGLOBIN 11.8 g/dL (12.0-18.0); MEAN CORPUSCULAR HGB CONC 33.7 g/dL (33.0-37.0); MEAN PLATELET VOLUME 10.8 fL (7.2-11.7); RBC 3.94 Mil/uL (4.40-5.90); RED CELL DISTRIBUTION WIDTH 15.5 % (11.5-14.5); WHITE BLOOD COUNT 5.6 K/uL (4.8-10.8)
[2017-07-03 07:00] LABS: ALB/GLOB RATIO 0.9 (1.0-2.1); ALBUMIN 2.6 g/dL (3.5-5.0); ALT/SGPT 91 U/L (21-72); AST/SGOT 44 U/L (17-59); BLOOD UREA NITROGEN 17 mg/dL (9-20); CALCIUM 8.1 mg/dl (8.6-10.4); GFR AFRICAN-AMERICAN > 60; GFR NON-AFRICAN AMERICAN > 60
[2017-07-03] MEDS: Pantoprazole 40 mg EC Tab PO SCH (09:47)
--- NOTE | 2017-07-03 13:12 | PN ---
DATE: SUBJECTIVE: I saw him in the Intensive Care Unit again. They have no beds in the telemetry. He is still here. He is comfortable, sleeping well. PHYSICAL EXAMINATION: VITAL SIGNS: He has 98.7 temp, 100 pulse, 113/51 blood pressure, 18 respiratory rate, 95% O2 saturation on room air . HEENT: His head is atraumatic, normocephalic. HEART: Regular rate. LUNGS: Decreased breath sounds, but clear. ABDOMEN: Soft. EXTREMITIES: Trace edema, but no hardness or tenderness in the calves. MEDICATIONS: He is currently on ceftriaxone, Eliquis, Lopressor, Protonix, and Zestril. He is also on Heparin. LABORATORY DATA: He has 143 sodium, potassium 3.9, BUN 17, creatinine is 1.7. Sugar is 175, calcium is 8.1, total bilirubin is 0.78, AST is 44, ALT is 91, alkaline phosphatase 27, total protein 5.4, all improving. 5.6 white count, 11.8 hemoglobin, 35.1 hematocrit, 142 platelets, all improving. ASSESSMENT AND PLAN: He was being seen by Intensive Care, Cardiology, Pulmonology. I am hoping to get him discharged in the next 24 hours depending on what physical therapy has to say. There is no physical therapy note. I need Physical Therapy's note to safely discharge. We will get him out of bed to chair, make sure he is eating. Goes to home hopefully on Eliquis, Lopressor, Protonix, and Zestril. He is here for bilateral pulmonary embolus, deep venous thrombosis, urinary tract infection. Thank you very much. Hua Lee DO
[2017-07-04 03:17] VITALS: BP 120/85; PULSE 102; RESP 20; TEMP 98.8; O2SAT 95
[2017-07-04 07:55] LABS: HEMOGLOBIN 11.6 g/dL (12.0-18.0); MEAN CELL VOLUME 88.7 fL (80.0-94.0); MEAN CORPUSCULAR HGB CONC 33.8 g/dL (33.0-37.0); MEAN PLATELET VOLUME 10.1 fL (7.2-11.7); RBC 3.87 Mil/uL (4.40-5.90); RED CELL DISTRIBUTION WIDTH 15.3 % (11.5-14.5); WHITE BLOOD COUNT 5.6 K/uL (4.8-10.8)
[2017-07-04 08:19] LABS: ALB/GLOB RATIO 0.9 (1.0-2.1); ALBUMIN 2.5 g/dL (3.5-5.0); ALT/SGPT 70 U/L (21-72); AST/SGOT 35 U/L (17-59); BLOOD UREA NITROGEN 15 mg/dL (9-20); CALCIUM 8.1 mg/dl (8.6-10.4); GFR AFRICAN-AMERICAN > 60; GFR NON-AFRICAN AMERICAN > 60
[2017-07-04] MEDS: Pantoprazole 40 mg EC Tab PO SCH (10:25)
--- NOTE | 2017-07-04 13:20 | DS ---
HISTORY Of PRESENT ILLNESS: I saw him resting comfortably, now finally out of the intensive care unit. He is doing very well. No chest pain, no shortness of breath, no abdominal pain. Physical therapy had seen him and said he could services, without any physical therapy and did well. He is comfortable. He is happy. He wants to go home. He is breathing better. PHYSICAL EXAMINATION: VITAL SIGNS: He has a 98.8 temp, 102 pulse, 120/85 blood pressure, 20 respiratory rate and 97% O2 sat on room air. HEENT: His head is atraumatic, normocephalic. HEART: Regular rate. LUNGS: Decreased breath sounds, but clear. ABDOMEN: Soft. EXTREMITIES: No edema, not even puffy in the calves anymore. He is going to go home on Lopressor 12.5 mg twice a day, Zestril 2.5 mg daily, Eliquis 10 mg twice a day for 7 days, and Eliquis 5 mg twice a day and probably be on that for 6 to 9 months, may be longer. LABORATORY DATA: He has a 5.6 white count, 11.6 hemoglobin, 34.3 hematocrit with 156 platelets. He has 142 sodium, potassium 4.2, BUN is 15, creatinine 0.9, GFR is greater than 60, sugar is 87, calcium is 8.1, total bili is 0.7, AST is 35, ALT is 70, alk phos is 152, total protein is 5.2. He did very well overall. He was here with bilateral PE, left calf DVT, pneumonia, cardiomyopathy. He will be seen in the office in 2 weeks. Discharged today. Hua Lee DO MTDEstiven
== END 2017-07-04 11:48 | disposition home or self-care (01) | DRG 175 ==
LOC: C.ER 16:53 → C.9I 21:18 → C.3T 07-04 03:24
PROVIDERS: ADMIT Family Medicine; ATTEND Family Medicine
PROC: 3E06317 Introduction of Other Thrombolytic into Central Artery, Percutaneous Approach (ICD-10-PCS; principal; 2017-06-29)
PROC: B31TYZZ Fluoroscopy of Left Pulmonary Artery using Other Contrast (ICD-10-PCS; 2017-06-29)
PROC: B31SYZZ Fluoroscopy of Right Pulmonary Artery using Other Contrast (ICD-10-PCS; 2017-06-29)
DX: I26.99 Other pulmonary embolism without acute cor pulmonale (principal); J18.9 Pneumonia, unspecified organism; I82.433 Acute embolism and thrombosis of popliteal vein, bilateral; N39.0 Urinary tract infection, site not specified; I50.20 Unspecified systolic (congestive) heart failure; I42.9 Cardiomyopathy, unspecified; I11.0 Hypertensive heart disease with heart failure; Z87.891 Personal history of nicotine dependence; R91.1 Solitary pulmonary nodule

== ENCOUNTER 2018-07-23 11:34 | Emergency (ER) | payer OTHER ==
[2018-07-23 11:51] VITALS: TEMP 97.9
[2018-07-23] MEDS ORDERED: Lidocaine 5% Patch TD STA (12:09)
[2018-07-23] MEDS ORDERED: Tdap Vaccine 0.5 ml Vial (10-64 yrs) IM ONE ×2 (12:09→12:19)
[2018-07-23] MEDS ORDERED: Bacitracin 500 Units/gm Oint Foilpak UD TOP ONE (12:11)
[2018-07-23] MEDS ORDERED: Bacitracin 500 Units/gm Oint Foilpak UD ONE ×2 (12:19→15:47)
[2018-07-23] MEDS ORDERED: Lidocaine 5% Patch TD ONE (12:19)
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
[2018-07-23 15:48] VITALS: BP 120/80; PULSE 99; RESP 20
[2018-07-23 15:49] VITALS: O2SAT 98
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
== END 2018-07-23 16:03 | disposition home or self-care (01) ==
LOC: C.ER 11:34
DX: M43.8X4 Other specified deforming dorsopathies, thoracic region (principal); S22.089A Unspecified fracture of T11-T12 vertebra, initial encounter for closed fracture; S60.511A Abrasion of right hand, initial encounter; S60.812A Abrasion of left wrist, initial encounter; V09.9XXA Pedestrian injured in unspecified transport accident, initial encounter; Y92.410 Unspecified street and highway as the place of occurrence of the external cause; M54.5 Low back pain
CPT/HCPCS: 72100; 72131; 90471; 90715; 96372; 99285; J1885